=== PATIENT | female | born 1940 | race Caucasian/White ===

== ENCOUNTER 2020-04-22 17:16 | Emergency (ER) | payer MEDICARE, SELFPAY ==
--- NOTE | ~2020-04-22 | CT_ITS ---
EXAMINATION: CT cervical spine wo con DATE: 04/22/2020 19:32 INDICATION: Head injury. TECHNIQUE: Computed tomography (CT) of the cervical spine was performed without intravenous contrast. Automated exposure control and iterative reconstruction technique were employed. The dose-length pro duct was 119.20 mGy-cm. COMPARISON: None FINDINGS: There is a left mastoid effusion. There is 8 degrees dextrocurvature of cervical spine. The re is 3 mm anterolisthesis of C3 on C4 and 2 mm retrolisthesis of C4 on C5 and C5 on C6. Vertebral deana dy heights are normal. There is mildly decreased disc height at C2-C3, severely decreased disc height at C3-C4, C4-C5, and C5-C6, mildly decreased disc height at C6-C7, and severely decreased disc heigh t at C7-T1 and T1-T2. The following disc levels are specifically discussed: C2-C3: There is mild bilateral uncovertebral joint osteoarthritis. There is severe bilateral facet allyn int osteoarthritis. There is no neural foraminal stenosis. There is mild central canal stenosis. C3-C4: There is mild right and severe left uncovertebral joint osteoarthritis. There is severe bilate ral facet joint osteoarthritis. There is mild left neural foraminal stenosis. There is mild central c anal stenosis. C4-C5: There is severe bilateral uncovertebral joint osteoarthritis. There is moderate bilateral face t joint osteoarthritis. There is no neural foraminal stenosis. There is mild central canal stenosis. C5-C6: There is severe bilateral uncovertebral joint osteoarthritis. There is moderate bilateral face t joint osteoarthritis. There is mild left neural foraminal stenosis. There is mild central canal dominique nosis. C6-C7: There is no uncovertebral joint osteoarthritis. There is mild bilateral facet joint osteoarthr itis. There is no neural foraminal stenosis. There is no central canal stenosis. C7-T1: There is moderate bilateral uncovertebral joint osteoarthritis. There is mild bilateral facet joint osteoarthritis. There is no neural foraminal stenosis. There is no central canal stenosis. IMPRESSION: 1. No fracture. 2. Severe cervical spondylosis. Reviewed, dictated and finalized at location A.
--- NOTE | ~2020-04-22 | CT_ITS ---
EXAMINATION: CT brain wo con DATE: 04/22/2020 19:32 INDICATION: Head injury. TECHNIQUE: Computed tomography (CT) of the head was performed without intravenous contrast. The mA wa s adjusted according to patient size. Iterative reconstruction technique was employed. The dose-lengt h product was 605.33 mGy-cm. COMPARISON: None FINDINGS: There are prominent perivascular spaces in the bilateral basal ganglia. There is acute suba rachnoid hemorrhage in sulci of the frontal lobes. There are scattered areas of low attenuation in th e cerebral white matter, which is within normal limits for the patient's age. There is no acute ische aren infarct or abnormal mass lesion. The ventricles are normal in size. There is mild mucosal thicken ing in the ethmoid sinuses. There is a left mastoid effusion. There are likely changes of ocular lens replacement surgeries. IMPRESSION: 1. Acute subarachnoid hemorrhage in the sulci of the frontal lobes. I called this result to Dr. Katey beach. 2. Left mastoid effusion. Reviewed, dictated and finalized at location A. IMPRESSION: 1. Acute subarachnoid hemorrhage in the sulci of the frontal lobes. I called th is result to Dr. Hannah. 2. Left mastoid effusion.
[2020-04-22 17:15] VITALS: BP 140/70; PULSE 72; RESP 17; TEMP 36.7; O2SAT 100
--- NOTE | 2020-04-22 17:34 | ED.GENADULT ---
HPI - General Adult General Chief complaint: Fall Stated complaint: FALL/HI Time Seen by Provider: 04/22/20 17:16 Source: patient and EMS Mode of arrival: EMS Limitations: no limitations History of Present Illness HPI narrative: Patient is a 80-year-old female who presents per EMS for evaluation after tripping and falling patient describes mechanical fall secondary to her shoes patient on arrival to emergency department is in the room notes mild posterior headache coupled with moderate nausea patient denies other injuries or complaints presents per EMS with C-spine immobilization Related Data Allergies Allergy/AdvReac Type Severity Reaction Status Date / Time Sulfa (Sulfonamide Allergy Unknown Unknown Verified 04/22/20 17:22 Antibiotics) Review of Systems Review of Systems: All systems reviewed & are unremarkable except as noted in HPI and below PMFSH Past Medical History Medical History Arthritis Benign essential HTN Hip subtrochanteric fracture Hypothyroidism (acquired) Mixed hyperlipidemia Otitis Retained myringotomy tube in left ear Surgical History Surgical History H/O rotator cuff surgery History of open reduction and internal fixation (ORIF) procedure Hx of hysterectomy Family History Family History (Updated 11/11/16 @ 23:56 by DOCTOR UNKNOWN) Mother Family history of malignant neoplasm of stomach, Onset Age: 75 Patient's mother is Father Patient's father is Social History Social History Years smoked: 5 Smoking status: Former smoker Tobacco type: cigarettes Second hand tobacco smoke exposure: No Smoking end date: 08/07/78 Alcohol intake: current Substance use: never Substance use type: does not use Gender identity (if verbalized by the patient): Female Exam Narrative: Exam Narrative: GENERAL: Well-appearing, well-nourished, and in no acute distress. HEAD: Normocephalic, atraumatic. EYES: PERRLA and EOMI. ENT: Nares clear, no rhinorrhea or epistaxis. Mucous membranes moist. NECK: Supple. No adenopathy or masses. CHEST: Clear to auscultation. No respiratory distress. No wheezes rales or rhonchi HEART: Regular rate and rhythm. No murmur heard. Normal peripheral pulses. ABDOMEN: Soft, nontender, nondistended EXTREMITIES: Normal range of motion. No edema. No cervical thoracic or lumbar tenderness SKIN: Warm, dry, no rash. NEURO: No focal deficits. Alert and oriented x3. Cranial nerves II through XII grossly intact PSYCH: Normal mood and affect. Course Consultations Consultation #1: Discussed case with [facility] who has extreme limitations and requests that I try other facilities Date: 04/22/20 Time: 20:26 Consultation #2: Discussed case with [facility] emergency department Dr. Rios who has accepted the patient Date: 04/22/20 Time: 20:26 Vital Signs Vital signs: Vital Signs Temperature 98.1 F 04/22/20 17:15 Pulse Rate 72 04/22/20 17:15 Respiratory Rate 17 04/22/20 17:15 Blood Pressure 140/70 04/22/20 17:15 Pulse Oximetry 100 04/22/20 17:15 Temperature 98.1 F 04/22/20 17:15 Pulse Rate 73 04/22/20 20:36 Respiratory Rate 18 04/22/20 20:36 Blood Pressure 130/78 04/22/20 20:36 Pulse Oximetry 96 04/22/20 20:36 Medical Decision Making MDM Narrative Medical decision making narrative: Patient with subarachnoid hemorrhage hemodynamically stable GCS of 15 will be transferred to trauma center for further evaluation patient is agreement this plan. Vital Signs Vital Signs: Vital Signs Temperature 98.1 F 04/22/20 17:15 Pulse Rate 72 04/22/20 17:15 Respiratory Rate 17 04/22/20 17:15 Blood Pressure 140/70 04/22/20 17:15 Pulse Oximetry 100 04/22/20 17:15 Temperature 98.1 F 04/22/20 17:15 Pulse Rat
[2020-04-22] MEDS: FAMOTIDINE 20 MG/2 ML VIAL IV PUSH (18:11)
[2020-04-22] MEDS: ONDANSETRON INJ 4 MG/2 ML VIAL IV PUSH ×2 (18:11→20:48)
[2020-04-22 18:12] VITALS: BP 141/64; PULSE 71; RESP 15; O2SAT 97
[2020-04-22] MEDS: SODIUM CHLORIDE 0.9% IV 500 ML 999 ML IV CONT (18:12)
[2020-04-22 20:36] VITALS: BP 130/78; PULSE 73; RESP 18; O2SAT 96
--- NOTE | 2020-04-22 20:56 | PC.NURSE ---
report to ollie newton @ [facility]
== END 2020-04-22 21:03 | disposition short-term general hospital (02) ==
PROVIDERS: Emergency Provider Emergency Medicine; PCP Family Medicine
DX: S06.6X9A Traumatic subarachnoid hemorrhage with loss of consciousness of unspecified duration, initial encounter (principal); M19.90 Unspecified osteoarthritis, unspecified site; I10 Essential (primary) hypertension; E03.9 Hypothyroidism, unspecified; E78.5 Hyperlipidemia, unspecified; Z87.891 Personal history of nicotine dependence; W19.XXXA Unspecified fall, initial encounter
CPT/HCPCS: 70450; 72125; 96365; 96375; 96376; 99291; J0131; J2405; J7040

== ENCOUNTER 2020-05-01 13:29 | Outpatient (CLI) | payer MEDICARE, SELFPAY ==
--- NOTE | ~2020-05-01 | XR_ITS ---
EXAMINATION: XR abdomen/kub 1V EXAM DATE: 05/01/2020 13:49 INDICATION: Abdominal pain. Recent hospital stay for brain bleed. TECHNIQUE: Frontal projection(s) of the abdomen for interpretation. There is no prior study for katerina solomon. FINDINGS: There is moderate amount of colonic stool and gas. No small bowel dilation, nonobstructiv e bowel gas pattern. There are no suspicious calcifications identified. There is no organomegaly suspected. Severe lumbar spondylosis. Right hip replacement. Lung bases unremarkable. IMPRESSION: Moderate amount of colonic stool. Reviewed, dictated and finalized at location B.
== END 2020-05-01 13:30 | disposition home or self-care (01) ==
PROVIDERS: PCP Family Medicine; Visit Provider Family Medicine
DX: R10.9 Unspecified abdominal pain (principal)
CPT/HCPCS: 74018

== ENCOUNTER 2021-02-25 11:53 | Outpatient (CLI) | payer MEDICARE, SELFPAY ==
--- NOTE | ~2021-02-25 | XR_ITS ---
EXAMINATION: XR knee LT 3V DATE: 02/25/2021 12:18 INDICATION: Left knee pain TECHNIQUE: Three views of the left knee were obtained. COMPARISON: None. FINDINGS: There is depression of the medial tibial plateau and moderate joint space narrowing. Modera te joint space narrowing is also seen in the patellofemoral compartment. The bones are osteopenic. Th ere is a large knee joint effusion. Calcified atherosclerosis is noted. IMPRESSION: 1. Depression of the medial tibial plateau which could be acute or chronic although imaging appearanc e suggests the latter. Recommend correlation for history of trauma. Reviewed, dictated and finalized at location B. IMPRESSION: 1. Depression of the medial tibial plateau which could be acute or chronic alth ough imaging appearance suggests the latter. Recommend correlation for history of trauma.
== END 2021-02-25 11:54 | disposition home or self-care (01) ==
LOC: ANHIMG 11:59
PROVIDERS: PCP Family Medicine; Visit Provider Family Medicine
DX: M25.562 Pain in left knee (principal)
CPT/HCPCS: 73562

== ENCOUNTER 2021-03-05 12:31 | Outpatient (CLI) | payer MEDICARE, SELFPAY ==
[2021-03-05 13:19] LABS: Alanine Aminotransferase 20 U/L (4-35); Albumin Level 4.7 g/dL (3.5-5.1); Alkaline Phosphatase 93 U/L (38-126); Anion Gap 10 mmol/L (8-16); Aspartate Amino Transferase 25 U/L (14-36); Bilirubin,Total 0.4 mg/dL (0.2-1.3); Blood Urea Nitrogen 32 mg/dL (7-17); Calcium 9.9 mg/dL (8.4-10.2); Carbon Dioxide 29 mmol/L (22-30); Chloride 95 mmol/L (98-107); Estimated Glomerular Filt Rate > 60; Glucose 118 mg/dL (65-110); Potassium 4.6 mmol/L (3.4-5.0); Sodium 134 mmol/L (137-145)
[2021-03-08 16:20] LABS: Thyroid Stimulating Hormone Reflex 0.887 uIU/mL (0.465-4.68)
[2021-03-10 19:02] LABS: Vitamin D 1,25 (OH)2 Total 43 pg/mL (18-72); Vitamin D2 1,25 (OH)2 <8 pg/mL; Vitamin D3 1,25 (OH)2 43 pg/mL
== END 2021-03-05 12:32 | disposition home or self-care (01) ==
LOC: ANHLAB 12:34
PROVIDERS: Physician Assistant; PCP Family Medicine; Visit Provider Family Medicine
DX: E55.9 Vitamin D deficiency, unspecified (principal); I10 Essential (primary) hypertension
CPT/HCPCS: 36415; 80053; 82652; 84443

== ENCOUNTER 2021-03-15 14:39 | Outpatient (CLI) | payer MEDICARE, SELFPAY ==
[2021-03-15 15:32] LABS: Hematocrit 43.9 % (37.0-47.0); Hemoglobin 14.2 g/dL (12.0-15.0)
[2021-03-15 15:41] LABS: Albumin Level 4.8 g/dL (3.5-5.1); Estimated Glomerular Filt Rate > 60; Glucose 116 mg/dL (65-110)
--- NOTE | 2021-03-15 15:54 | ECG_ITS ---
Measurements Intervals Perry Rate: 66 P: 64 LA: 197 QRS: 9 QRSD: 104 T: 61 QT: 410 QTc: 430 Interpretive Statements SINUS RHYTHM POSSIBLE LEFT ATRIAL ENLARGEMENT LOW QRS VOLTAGE IN LIMB LEADS ANTEROSEPTAL INFARCT, AGE INDETERMINATE ABNORMAL ECG Electronically Signed On 03-15-2021 16:49:14 CDT by Yo Adam D.O.
[2021-03-15 16:57] LABS: Urine Cotinine NEGATIVE
[2021-03-15 17:20] LABS: Hemoglobin A1C 5.7 % (<5.7)
== END 2021-03-15 14:40 | disposition home or self-care (01) ==
LOC: ANHLAB 14:54
PROVIDERS: PCP Family Medicine; Visit Provider Orthopaedic Surgery
DX: Z01.818 Encounter for other preprocedural examination (principal); M17.12 Unilateral primary osteoarthritis, left knee; I10 Essential (primary) hypertension; E78.2 Mixed hyperlipidemia; E03.9 Hypothyroidism, unspecified; R94.31 Abnormal electrocardiogram [ECG] [EKG]
CPT/HCPCS: 80307; 82040; 82565; 82947; 83036; 85014; 85018; 93005

== ENCOUNTER 2021-03-30 15:06 | Outpatient (CLI) | payer MEDICARE, SELFPAY ==
--- NOTE | ~2021-03-30 | DEXA_ITS ---
Bone Density Report Name: Carlotta Lamar Age: 81 Sex: Female Ethnicity: White Date of : 1940 Indication: postmenopausal; parental hip fracture; height loss; prior fracture; hysterectomy; rheumatoid arthritis; Referring Provider: AZUCENA WHITMAN Study: Bone densitometry was performed. Exam Date: March 30, 2021 Accession number: [id number] Bone Density: Region BMD T-score Z-score Classification AP Spine (L2, L3, L4) 1.303 2.0 4.9 Normal Femoral Neck (Left) 0.551 -2.7 -0.3 Osteoporosis Total Hip (Left) 0.636 -2.5 -0.3 Osteoporosis World Health Organization criteria for BMD impression classify patients as: Normal (T-score at or above -1.0), Osteopenia (T-score between -1.0 and -2.5), or Osteoporosis (T-score at or below -2.5). 10-year Fracture Risk: FRAX not reported because: Some T-score for Spine Total or Hip Total or Femoral Neck at or below -2.5 Prior hip or vertebral fracture Treated for osteopor Clinical Information Provided by Patient: Have had a previous hip or vertebral fracture Has had a low trauma fracture Parent has had a hip fracture Has rheumatoid arthritis Is being treated for osteoporosis Has used the following medications: Vitamin D, Calcium Has the following medical conditions: Hysterectomy Patient maximum height was 61 Menopause Age: 50 No regular weight bearing exercise Does not regularly consume dairy products Onset of menses at age 12 Number of children 4 Impression: The patient has established osteoporosis, based on the Left Femoral Neck T-score and the existence of a prior fracture. The patient has risk factors, including: parental hip fracture, previous fracture. Discussion: It is important to ask patients whether they are taking their medications and to encourage continued and appropriate compliance with their osteoporosis therapies to reduce fracture risk. It is also important to review their risk factors and encourage appropriate calcium and vitamin D intakes, exercise, fall prevention and other lifestyle measures. Follow-Up: Consider a repeat BMD and Vertebral Fracture Assessment (VFA) exam in 2 years or sooner if medically necessary, to reassess this patient's status. Reported by: [facility] on 03/30/2021 3:50:00 PM. Reviewed, dictated and finalized at location ARangel APODACA
--- NOTE | ~2021-03-30 | MM_ITS ---
EXAMINATION: MM screening [facility] HISTORY: Screening mammogram TECHNIQUE: Craniocaudal and mediolateral oblique 3-D tomosynthesis images were obtained and synthetic 2-D images were generated. CAD analysis was submitted and interpreted. COMPARISON: 04/30/2019, 04/18/2018, 04/04/2017 BREAST PARENCHYMAL COMPOSITION: There are scattered areas of fibroglandular density. FINDINGS: There is no evidence of suspicious mass, calcification, or architectural distortion to sugg est malignancy in either breast. There has been no suspicious interval change. IMPRESSION: 1. No mammographic evidence of malignancy. 2. Recommend routine screening mammography in one year. BI-RADS Category 1: Negative Reviewed, dictated and finalized at location A.
== END 2021-03-30 15:07 | disposition home or self-care (01) ==
PROVIDERS: PCP Family Medicine; Visit Provider Family Medicine
DX: Z12.31 Encounter for screening mammogram for malignant neoplasm of breast (principal); Z78.0 Asymptomatic menopausal state; M81.0 Age-related osteoporosis without current pathological fracture
CPT/HCPCS: 77063; 77067; 77080

== ENCOUNTER 2021-06-28 09:02 | Outpatient (CLI) | payer MEDICARE, SELFPAY ==
[2021-06-28 10:33] LABS: Basophils Absolute Auto 0.1 K/mm3 (0.0-0.1); Basophils Percent Auto 1.2 % (0.2-1.2); Eosinophils Absolute Auto 0.1 K/mm3 (0-0.3); Eosinophils Percent Auto 1.2 % (0-4.4); Hematocrit 40.1 % (37.0-47.0); Hemoglobin 13.3 g/dL (12.0-15.0); Immature Granulocyte Absolute 0.02 K/mm3 (0.00-0.031); Immature Granulocyte Percent A 0.3 % (0-0.5); Lymphocytes Absolute Auto 2.35 K/mm3 (0.9-3.2); Lymphocytes Percent Auto 30.6 % (18.3-44.2); Mean Corpuscular HGB Conc 33.2 g/dl (32-36); Mean Corpuscular Hemoglobin 30.6 pg (26-34); Mean Corpuscular Volume 92.2 fl (80-100); Mean Platelet Volume 8.9 fl (7.4-10.4); Monocytes Absolute Auto 0.6 K/mm3 (0.1-0.6); Monocytes Percent Auto 7.2 % (2.6-8.5); Neutrophils Absolute Auto 4.6 K/mm3 (1.3-6.7); Neutrophils Percent Auto 59.5 % (45.5-73.1); Platelet Count Result 307 k/mm3 (150-375); Red Blood Count 4.35 M/mm3 (4.2-5.4); Red Cell Distribution Width 12.3 % (11.5-14.5); White Blood Count 7.7 K/mm3 (4.5-10.0)
[2021-06-28 10:43] LABS: Urine Cotinine NEGATIVE
[2021-06-28 10:49] LABS: Albumin Level 4.8 g/dL (3.5-5.1)
[2021-06-28 10:52] LABS: Anion Gap 7 mmol/L (8-16); Blood Urea Nitrogen 37 mg/dL (7-17); Calcium 9.8 mg/dL (8.4-10.2); Carbon Dioxide 31 mmol/L (22-30); Chloride 97 mmol/L (98-107); Estimated Glomerular Filt Rate 60; Glucose 104 mg/dL (65-110); Potassium 4.4 mmol/L (3.4-5.0); Sodium 135 mmol/L (137-145)
[2021-06-28 10:55] LABS: Hemoglobin A1C 5.3 % (<5.7)
== END 2021-06-28 09:03 | disposition home or self-care (01) ==
LOC: ANHSURGERY 09:08
PROVIDERS: Anesthesiology; PCP Family Medicine; Visit Provider Orthopaedic Surgery
DX: Z01.818 Encounter for other preprocedural examination (principal); M17.12 Unilateral primary osteoarthritis, left knee; I10 Essential (primary) hypertension
CPT/HCPCS: 36415; 80048; 80307; 82040; 83036; 85025; 87081

== ENCOUNTER → 2021-07-20 00:57 | Outpatient (CLI) | payer MEDICARE, SELFPAY ==
[2021-07-21 02:02] LABS: SARS-CoV-2 RNA PCR Negative
== END ==
PROVIDERS: PCP Family Medicine; Visit Provider Orthopaedic Surgery
DX: Z01.812 Encounter for preprocedural laboratory examination (principal); Z20.822 Contact with and (suspected) exposure to COVID-19
CPT/HCPCS: C9803; U0003; U0005

== ENCOUNTER 2021-07-24 18:40 | Observation (INO) | payer MEDICARE, SELFPAY ==
[2021-06-28 09:17] VITALS: BMI 19.9
--- NOTE | 2021-06-28 09:49 | PC.NURSE ---
Addendum entered by Heena Pro RN 06/28/21 09:56: TOTAL JOINT CLASS 07/07/21 AT 10AM Original Note: Report to the Outpatient Waiting Room, entrance under the green pavilion located off [facility], at time _1100 on date _07/23/21 . OR Time: _1:00 PM . - You and your visitor will be asked a series of questions to screen for COVID 19 for your protection. - A mask is required within the hospital. - Only one visitor is allowed at this time. Patient visitors will be guided where to wait when not with patient. Preoperative COVID Testing Requirements: No COVID Test needed if: (proof is required; if not received patient will have Rapid Test prior to entry) COVID TESTING 07/20/21 AT 0900 - Patient has received COVID Vaccine at least 14 days prior to procedure date or - Patient has positive COVID test result within last 90 days of surgery date. COVID Test needed if above criteria is not met If not COVID vaccinated a COVID test must be conducted within 72 hours of surgery and patient is asked to isolate self from time of testing until procedure. You will go to the [facility] for your COVID testing. The [facility] Testing site is located at the corner of [address] [facility]. You will only be called if COVID results are positive and your surgeon may reschedule your elective surgery date. Patients may have clear liquids (water, carbonated beverages, clear teas, apple juice) until 3 hours prior to surgery with a maximum of 20 ounces. - No food from midnight until time of surgery - Infants may have breast milk until 4 hours before surgery, infant formula 6 hours prior to surgery. - Children will be allowed to drink immediately following surgery. If applicable, please bring a bottle or sippy cup to assist with drinking. Juice, water, soda, and popsicles are readily available. For infants on formula, please bring formula the day of surgery. Pacifiers are allowed. Take the following medications with a SIP of water the morning of surgery: __LEVOTHYROXINE Medications to discontinue per physician __ALL VITAMINS AND SUPPLEMENTS 3 DAYS PRE OP Date to take last dose___07/19/21 Please no make-up, nail kinyarwanda, hairspray, perfume, deodorant, or body powder the day of surgery. No jewelry (including any body piercings) or valuables the day of surgery, leave them at home. Please take a shower or bath the night before, or the morning of, surgery with an antibacterial soap. Wear comfortable, loose fitting clothing. Children are encouraged to wear pajamas. - Jewelry must be removed prior to entering the operating room. Rings and piercings that are not removed may be cut off. - The hospital will not accept responsibility for valuables. - Please leave all valuables, including medications, at home the day of surgery. If you are going home after surgery, a licensed set key driver must drive you home. - NO public transportation without another adult. - We recommend that an adult stay with you for 24 hours following discharge. - We also recommend that you do not drive, make important decision, drink alcoholic beverages, or take any drugs that were not prescribed by your health care provider for at least 24 hours after your discharge time. For Pediatric surgeries, we recommend two adults accompany the child home (only one inside the building at this time). VERBAL Follow any additional instructions given to you from your eveline instructions given to _PATIENT and asked if any additional questions and then verbalized understanding. Patient advised to call surgeon office or pre surgery nurse liaison [phone] if any additional questions.
[2021-06-28 10:10] VITALS: BP 141/52; PULSE 79; RESP 16; TEMP 36.9; O2SAT 99
[2021-07-23] VITALS (11 sets, daily range): BP systolic 133–162; BP diastolic 57–82; PULSE 69–86; RESP 10–19; TEMP 36.2–37.1; O2SAT 96–100
--- NOTE | 2021-07-23 09:57 | WPDANESPNB ---
Anes - Peripheral Nerve Block Date/Time: 07/23/21 09:57 I have discussed with the patient/family/POA the placement of a peripheral nerve block for post-operative pain management, including associated risks, benefits, complications, and side effects. Alternative methods of post-operative analgesia were detailed. Questions were solicited and answers provided to the satisfaction of the patient/family/POA. Time-Out: A pre-procedural Time-Out was completed immediately before starting the procedure and confirmed: Patient Identification, Site, Procedure, Patient Position and the Availability of Requisite Equipment. Clinical Indications: Acute post-operative pain management requested by the operative surgeon. Nerve Block Insertion Note Anes-nerve block: adductor canal left Patient position: supine Skin prep: chlorhexidine Needle: 22 gauge, stimulating, insulated echogenic needle. Needle length: 80 mm Technique: ultrasound Injectate: bupivacaine 0.5% with epi 5 mcg/ml (30cc - no epi) Observations: tolerated well Complications: none Procedure start time:: 1258 Procedure end time:: 1302
--- NOTE | 2021-07-23 09:57 | WPDANESEPPF ---
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 Patient Data Age: 81 Gender: F Height: 1.5 m Weight: 44.8 kg Last Vital Signs Temp 36.9 C 06/28/21 10:10 Pulse 79 06/28/21 10:10 Resp 16 06/28/21 10:10 BP 141/52 H 06/28/21 10:10 Pulse Ox 99 06/28/21 10:10 Allergies Allergy/AdvReac Type Severity Reaction Status Date / Time Sulfa (Sulfonamide Allergy Unknown Hives Verified 07/23/21 12:11 Antibiotics) fentanyl AdvReac Unknown Nausea Verified 07/23/21 12:11 Home Medications Medication Instructions Recorded Confirmed Type levothyroxine 100 mcg tablet 100 mcg PO DAILY #90 tablet 03/08/21 07/23/21 Rx acetaminophen 325 mg tablet 325 mg PO Q6H PRN 03/15/21 07/23/21 History fluticasone propionate 50 1 spray NASAL BID #15.8 ml 04/19/21 07/23/21 Rx mcg/actuation nasal spray,suspension celecoxib 100 mg capsule See Rx Instructions .ROUTE 05/29/21 07/23/21 Rx .COMPLEX #180 cap acetaminophen-codeine 0.5 tablet PO Q6H PRN 06/28/21 07/23/21 History bimatoprost [Lumigan] 1 drp EACH EYE QPM 06/28/21 07/23/21 History cyanocobalamin (vitamin B-12) 1,000 mcg PO BID 06/28/21 07/23/21 History lisinopril 10 See Rx Instructions .ROUTE 07/07/21 07/23/21 Rx mg-hydrochlorothiazide 12.5 mg .COMPLEX #90 tablet tablet Patient hx anesthesia problems: none Family hx anesthesia problems: none Results Review: All pre-operative results and documents have been reviewed as part of the pre-operative evaluation. [facility] Past Medical History Medical History Abnormality of gait and mobility Acute pain Allergic reaction caused by a drug Arthritis Benign essential HTN Encounter for general adult medical examination with abnormal findings Hip subtrochanteric fracture Hypothyroidism (acquired) Knee swelling Mixed hyperlipidemia Osteopenia determined by x-ray Osteoporosis Otitis Pain Pollen allergies Retained myringotomy tube in left ear SAH (subarachnoid hemorrhage) Surgical History Surgical History H/O rotator cuff surgery History of open reduction and internal fixation (ORIF) procedure Hx of hysterectomy Family History Family History Mother Family history of malignant neoplasm of stomach, Onset Age: 75 Patient's mother is Father Patient's father is Social History Social History Social History: Smoking packs per day: 0.5 Smoking cigarettes per day: 10.0 Years smoked: 8 Smoking pack-years: 4.00 Tobacco type: cigarettes Second hand tobacco smoke exposure: No Smoking end date: 08/07/72 Additional smoking assessment comments: DENIES ANY FORM OF TOBACCO USE Alcohol intake: current Alcohol use details: occasionally Substance use: never Substance use type: does not use Living arrangements: alone Gender identity (if verbalized by the patient): Female Sexual Orientation (if Verbalized by the Patient): Straight or Heterosexual Spiritual care concerns: No Anes - Eval Final PreProcedure Day of Procedure 07/23/21 09:57 Patient weight: thin Heart: regular rate and rhythm Lungs: clear to auscultation and normal air movement Airway: Mallampati scale class II Neurological: alert and oriented Last oral intake: >/= 8 hours ASA classification: III Emergent: no Anesthetic plan: proceed Anesthesia type and monitoring: general LMA and standard monitoring Results Review: All pre-operative results and documents have been reviewed as part of the pre-operative evaluation. Informed Consent: The kelly
[2021-07-23] MEDS: LACTATED RINGERS 1,000 ML 30 ML IV CONT ×2 (11:53→16:48)
[2021-07-23] MEDS: ACETAMINOPHEN 500 MG TABLET 1000 MG PO (12:06)
[2021-07-23] MEDS: TRANEXAMIC ACID 1,000MG/ISO100 1,000 MG/100 ML BAG 200 MG IVPB (12:09)
--- NOTE | 2021-07-23 12:33 | WPDHPUPDATE1 ---
History and Physical Update Update Date/Time: 07/23/21 12:33 History and Physical has been reviewed, including an updated exam of the patient. There are NO changes in the patient's condition. Risks, benefits, and alternatives have been discussed and questions answered. Patient agrees to proceed with procedure.
[2021-07-23] MEDS: ceFAZolin 2 GM/D5W 50 ML 2 GM/50 ML BAG IVPB ×2 (13:19→20:16)
[2021-07-23] MEDS: ceFAZolin SODIUM 1 GM VIAL IV PUSH (16:16)
[2021-07-23] MEDS: VANCOMYCIN HCL 1,000 MG VIAL 1000 MG TOPICAL (16:16)
--- NOTE | 2021-07-23 16:49 | W.PM.PROC2 ---
Procedure Note - Detailed Date of Procedure 07/23/21 Pre-op Diagnosis Prim OA Lt Knee Post-op Diagnosis same Procedure Performed Left total knee arthroplasty. Surgeon Octavio Tanner MD Computational Theory Scientist lCaudia Morelos PA-C Anesthesia general Indications Severe arthritis with severe medial tibial bone loss and varus deformity with contracture. Findings Severe medial tibial erosion requiring 5 mm metallic augment. Some of the bone appeared necrotic. Extensive varus contracture required wide extensive medial release the exposure of the proximal tibia including the posterior medial tibia. Medial needle release was also performed. The lateral collateral ligament remained moderately attenuated. A total stabilized tibial insert was utilized. Balance, patellar tracking, and motion were excellent at the conclusion of the procedure. Description of Procedure The patient was given a nerve block preoperatively, and then brought to the operating room. A general anesthetic was administered. The leg was prepped and draped in the usual sterile fashion. The limb was elevated and the tourniquet inflated to 300 mmHg during the initial exposure and final tibial prep and cementation. A longitudinal incision was created along the medial border of the patella and patellar tendon, and a trivector approach to the knee was performed. A very large medial release was taken. The knee was then flexed. The osteophytes were carefully removed. The intramedullary guide was placed in the femoral canal. The degenerative changes were extensive. The bone was very sclerotic. The distal femoral resection was then taken with the oscillating saw. Initially at 8 mm and then an additional 2 mm due to contracture. The collateral ligaments were carefully protected. The tibia was carefully exposed. The anterior cruciate ligament and meniscal remnants were removed. The posterior cruciate ligament was sacrificed The intramedullary guide was placed down the tibia canal. The jig was applied, and the proximal tibia was resected according to the preoperative plan. There was a step cut created initially for the 10 mm augment, but the 5 mm augment was then cut later slightly deeper. The medial collateral ligament required extensive release including a needle release. Extension balancing was not possible due to the significant chronic deformity and ligament changes. Multiple assessments with the gap associate attorney and trialing was performed. . The patella was measured. Patellar resection was carried out with the oscillating saw. The femur was sized and rotation assessed using a combination of gap balancing, posterior referencing, and the AP axis. The 4 in 1 cutting block, and the box cut guide were used to finish the femoral cuts after equal gaps were assured. Due to the posterior medial tightness, the femur was externally rotated to 4?. The osteophytes were carefully removed from the back of the knee. The knee was copiously irrigated periodically throughout the procedure. Further releases were performed as needed. The tibia was sized and broached. Central drilling for the short stem was performed. The bony surfaces were prepared for cementing with pulsatile lavage. The real tibial was cemented, and the femoral, and patellar components were pressfit into position. Excess cement was carefully removed. Patellar tracking was carefully assessed. No additional releases were required. 1 g vancomycin powder was placed in the joint and some on the subcutaneous tissues. The wound was closed with #1 Vicryl suture, #2 Quill suture, 0-Quill suture, and 2-0 Quill suture followed by Steri-Strips. A sterile bulky dressing was applied. Meticulous hemostasis was maintained throughout the procedure. There were no complications. The patient was extubated and brought to the recovery room in stable condition after the application of sterile dressing with Alex bandage. Physician clinical trials assistant, Claudia Morelos PA-C,
--- NOTE | 2021-07-23 17:19 | SUR.PHASEI ---
1719 Simple mask removed
--- NOTE | 2021-07-23 18:10 | ADMGEN ---
This patient, Carlotta Lamar, was admitted to Medical Room 257-01. Patient/family oriented to hospital policies and general routines including ID bracelet, bed and alarms, visiting hours, pain management, procedures, bathroom and other care routines, personal items, smoking policy, room service/diet, and visiting hours. Information on how to activate the Rapid Response Team has been discussed. Patient/Family are encouraged to report perceived risks to care and to ask questions if they do not understand what they are told or what they should do.
[2021-07-23] MEDS: SODIUM CHLORIDE 0.9% IV 1,000 ML 125 ML IV CONT (18:28)
[2021-07-23] MEDS: ASPIRIN 81 MG ENTERIC TABLET PO (18:35)
[2021-07-23] MEDS: SENNA/DOCUSATE SODIUM TABLET 2 TAB PO (18:35)
[2021-07-23] MEDS: FAMOTIDINE 20 MG TABLET PO (20:16)
[2021-07-23] MEDS: ONDANSETRON INJ 4 MG/2 ML VIAL IV PUSH (20:16)
[2021-07-23] MEDS: oxyCODONE HCL (*CRX) 5 MG TAB IR PO (20:16)
--- NOTE | ~2021-07-24 | XR_ITS ---
EXAMINATION: XR knee LT 2V DATE: 07/23/2021 17:01 INDICATION: Left knee arthroplasty. Postop. TECHNIQUE: 2 views of left knee were obtained. COMPARISON: Left knee radiographs 02/25/2021 FINDINGS: There is a total left knee arthroplasty with patellar resurfacing in near-anatomic alignmen t. No fracture. There is gas in the knee joint and soft tissues, consistent with recent surgery. IMPRESSION: 1. Total left knee arthroplasty in near-anatomic alignment. Reviewed, dictated and finalized at location A. ICE UPHOLSTERER
[2021-07-24 00:24] VITALS: BP 114/50; PULSE 66; RESP 16; TEMP 36.6; O2SAT 97
[2021-07-24] MEDS: ONDANSETRON INJ 4 MG/2 ML VIAL IV PUSH ×2 (01:16→08:53)
[2021-07-24] MEDS: ceFAZolin 2 GM/D5W 50 ML 2 GM/50 ML BAG IVPB ×2 (04:04→13:14)
[2021-07-24 04:24] VITALS: BP 120/46; PULSE 64; RESP 16; TEMP 36.4; O2SAT 97
[2021-07-24] MEDS: LEVOTHYROXINE SODIUM 100 MCG TABLET PO (06:01)
[2021-07-24] MEDS: polyethylene glycoL 3350 17 GM POWD.PACK PO (08:47)
[2021-07-24] MEDS: lisinopriL 10 MG TABLET PO (08:47)
[2021-07-24] MEDS: hydroCHLOROthiazide 12.5 MG CAPSULE PO (08:47)
[2021-07-24] MEDS: SENNA/DOCUSATE SODIUM TABLET 2 TAB PO ×2 (08:48→17:19)
[2021-07-24] MEDS: CELECOXIB 100 MG CAPSULE PO ×2 (08:48→17:19)
[2021-07-24] MEDS: FAMOTIDINE 20 MG TABLET PO ×2 (08:48→20:50)
[2021-07-24] MEDS: ASPIRIN 81 MG ENTERIC TABLET PO ×2 (08:48→17:20)
[2021-07-24 10:00] VITALS: BP 100/54; PULSE 78; RESP 16; TEMP 37; O2SAT 97
[2021-07-24 14:00] VITALS: BP 129/53; PULSE 86; RESP 16; TEMP 37.2; O2SAT 97
[2021-07-24] MEDS: CYCLOBENZAPRINE HCL 10 MG TABLET PO (18:41)
--- NOTE | 2021-07-24 19:29 | PM.PNORT ---
Progress Note: A&P Assessment and Plan (1) Arthritis of left knee: Code(s): M17.12 - Unilateral primary osteoarthritis, left knee Status: Acute (2) Acquired varus deformity knee: Qualifiers: Laterality: left Qualified Code(s): M21.162 - Varus deformity, not elsewhere classified, left knee Code(s): M21.169 - Varus deformity, not elsewhere classified, unspecified knee Status: Acute (3) Congenital varus deformity of left knee: Code(s): Q74.1 - Congenital malformation of knee Status: Acute (4) Status post total knee replacement, left: Code(s): Z96.652 - Presence of left artificial knee joint Status: Acute Assessment and Plan: Post op day one. Complex knee arthroplasty with deformity correction and extensive soft tissue releases. Tibial bone lose with prosthetic augmentation. Total stabilized construct. Nausea with pain medication. Will change to a lesser dose. Will benefit from close observation; edema and pain management. She lives alone, but I expect a safe discharge to home after inpatient care for a few days. Subjective Subjective Date/Time Seen: 07/24/21 19:30 Interval history: Post op day 1. Status post complex total knee arthroplasty. Pain well controlled. Nausea with standard dosing. Exam Narrative: Moderate swelling. No drainage. Quad function diminished. Neuro intact. Objective Data Vital Signs Vital Signs: Vital Signs - 24 hr 07/23/21 20:24 07/24/21 00:24 07/24/21 04:24 Temperature 36.8 C 36.6 C 36.4 C Pulse Rate 77 66 64 Respiratory Rate 16 16 16 Blood Pressure 150/58 H 114/50 L 120/46 L Pulse Oximetry 99 97 97 07/24/21 10:00 07/24/21 14:00 Temperature 37.0 C 37.2 C Pulse Rate 78 86 Respiratory Rate 16 16 Blood Pressure 100/54 L 129/53 L Pulse Oximetry 97 97 Intake/Output Intake/Output: Intake & Output 07/21/21 07/22/21 07/23/21 07/24/21 23:59 23:59 23:59 23:59 Intake Total 570 1979 Balance 570 1979 Meds/Results Medications: Active Medications Generic Name Dose Route Start Last Admin Trade Name Freq PRN Reason Stop Dose Admin Aspirin 81 mg 07/23/21 17:49 07/24/21 17:20 Aspirin 81 Mg Enteric Tablet PO 81 mg BID NOHEMY Administration Celecoxib 100 mg 07/24/21 09:00 07/24/21 17:19 Celecoxib 100 Mg Capsule PO 100 mg BID NOHEMY Administration Cyclobenzaprine HCl 10 mg 07/23/21 17:49 07/24/21 18:41 Cyclobenzaprine Hcl 10 Mg Tablet PO 10 mg Q8H PRN Administration Spasms Diphenhydramine HCl 25 mg 07/23/21 17:49 Diphenhydramine Hcl Inj 50 Mg/Ml Vial IV PUSH Q6H PRN Itching Famotidine 20 mg 07/23/21 21:00 07/24/21 08:48 Famotidine 20 Mg Tablet PO 20 mg Q12HR NOHEMY Administration Hydrochlorothiazide 12.5 mg 07/24/21 09:00 07/24/21 08:47 Hydrochlorothiazide 12.5 Mg Capsule PO 12.5 mg DAILY NOHEMY Administration Levothyroxine Sodium 100 mcg 07/24/21 06:30 07/24/21 06:01 Levothyroxine Sodium 100 Mcg Tablet PO 100 mcg DAILY@0630 NOHEMY Administration Lisinopril 10 mg 07/24/21 09:00 07/24/21 08:47 Lisinopril 10 Mg Tablet PO 10 mg DAILY NOHEMY Administration Naloxone HCl 0.1 mg 07/23/21 17:49 Naloxone Hcl 0.4 Mg/Ml Vial IV PUSH Q2M PRN Opiate Reversal Ondansetron HCl 4 mg 07/23/21 17:49 07/24/21 08:53 Ondansetron Inj 4 Mg/2 Ml Vial IV PUSH 4 mg Q4H PRN Administration Nausea And Vomiting Oxycodone HCl 5 mg 07/23/21 17:49 07/23/21 20:16 Oxycodone Hcl (*Crx) 5 Mg Tab Ir PO 5 mg Q4H PRN Administration Pain Rated 4-6 Oxycodone HCl 10 mg 07/23/21 17:49 Oxycodone Hcl (*Crx) 5 Mg Tab Ir PO Q4H PRN Pain Rated 7-10 Oxycodone HCl 2.5 mg 07/24/21 19:27 Oxycodone Hcl (*Crx) 2.5 Mg Tab Ir PO Q4H PRN Pain Rated 4-6 Polyethylene Glycol 17 gm 07/24/21 09:00 07/24/21 08:47 Polyethylene Glycol 3350 17 Gm Powd.Pack PO 17 gm QAM NOHEMY Administration Senna/D
[2021-07-24] MEDS: oxyCODONE HCL (*CRX) 2.5 MG TAB IR PO (20:53)
[2021-07-24 22:12] VITALS: BP 148/45; PULSE 57; RESP 14; TEMP 36.7; O2SAT 98
[2021-07-24 22:15] VITALS: BP 123/73; PULSE 72; RESP 14; TEMP 36.8; O2SAT 100
[2021-07-25] MEDS: oxyCODONE HCL (*CRX) 2.5 MG TAB IR PO (01:04)
[2021-07-25 04:00] VITALS: PULSE 91; RESP 14; TEMP 36.7; O2SAT 96
[2021-07-25] MEDS: ONDANSETRON INJ 4 MG/2 ML VIAL IV PUSH (05:29)
[2021-07-25] MEDS: LEVOTHYROXINE SODIUM 100 MCG TABLET PO (05:30)
[2021-07-25] MEDS: CYCLOBENZAPRINE HCL 10 MG TABLET PO (05:30)
[2021-07-25] MEDS: polyethylene glycoL 3350 17 GM POWD.PACK PO (08:36)
[2021-07-25] MEDS: diphenhydrAMINE HCl INJ 50 MG/ML VIAL 25 MG IV PUSH ×3 (08:36→22:23)
[2021-07-25] MEDS: ASPIRIN 81 MG ENTERIC TABLET PO ×2 (08:37→17:08)
[2021-07-25] MEDS: FAMOTIDINE 20 MG TABLET PO ×2 (08:37→20:08)
[2021-07-25] MEDS: hydroCHLOROthiazide 12.5 MG CAPSULE PO (08:37)
[2021-07-25] MEDS: lisinopriL 10 MG TABLET PO (08:37)
[2021-07-25] MEDS: SENNA/DOCUSATE SODIUM TABLET 2 TAB PO ×2 (08:37→17:07)
[2021-07-25] MEDS: ACETAMINOPHEN 500 MG TABLET 1000 MG PO ×3 (11:17→20:08)
--- NOTE | 2021-07-25 13:38 | PM.PNORT ---
Progress Note: A&P Assessment and Plan (1) Arthritis of left knee: Code(s): M17.12 - Unilateral primary osteoarthritis, left knee Status: Acute (2) Acquired varus deformity knee: Qualifiers: Laterality: left Qualified Code(s): M21.162 - Varus deformity, not elsewhere classified, left knee Code(s): M21.169 - Varus deformity, not elsewhere classified, unspecified knee Status: Acute (3) Congenital varus deformity of left knee: Code(s): Q74.1 - Congenital malformation of knee Status: Acute (4) Status post total knee replacement, left: Code(s): Z96.652 - Presence of left artificial knee joint Status: Acute Assessment and Plan: Post op day two. Complex knee arthroplasty with deformity correction and extensive soft tissue releases. Tibial bone lose with prosthetic augmentation. Total stabilized construct. Pain not controlled with lower dose pain medication, however no N/V. Patient wants to continue current medications. Will benefit from close observation; edema and pain management. She lives alone, but I expect a safe discharge to home after inpatient care for a few days. She is having more trouble today and is less motivated. Discussed with patient that this is expected. Pain and swelling peak around this time. Plan for d/c home tomorrow pending pain control. Subjective Subjective Date/Time Seen: 07/25/21 13:38 Interval history: Post op day 1. Status post complex total knee arthroplasty. Pain well controlled. Nausea with standard dosing. Post op day 2. Pain not controlled today. Complains of itching relieved by Benadryl. Spoke with nurse who stated she is less motivated today and is afraid of going home. Patient is on board with going home tomorrow pending pain control. Discussed that this is the time at which the pain begins to peak. I recommend continuing ice and elevation. No n/v today. No other complaints. Review of Systems Review of Systems: All systems reviewed & are unremarkable except as noted in HPI and below Exam Narrative: 81-year-old normal weight female. Resting comfortably in bed. Alert and oriented x3. No acute distress. Wearing compression socks bilaterally. Dressing intact with no drainage. Moderate swelling. No ecchymosis. No erythema. No hematoma. No warmth. Range of motion limited due to pain. Quad function diminished. Calf nontender. Neurologic status intact. No varicosities. Distal pulses palpable. Light touch sensation intact. Good capillary refill. Objective Data Vital Signs Vital Signs: Vital Signs - 24 hr 07/24/21 14:00 07/24/21 22:12 07/24/21 22:15 Temperature 99.0 F 98.1 F 98.2 F Pulse Rate 86 57 L 72 Respiratory Rate 16 14 14 Blood Pressure 129/53 L 148/45 H 123/73 Pulse Oximetry 97 98 100 07/25/21 04:00 Temperature 98.1 F Pulse Rate 91 Respiratory Rate 14 Blood Pressure Pulse Oximetry 96 Intake/Output Intake/Output: Intake & Output 07/22/21 07/23/21 07/24/21 07/25/21 23:59 23:59 23:59 23:59 Intake Total 570 2180 770 Output Total 500 Balance 570 1680 770 Meds/Results Medications: Active Medications Generic Name Dose Route Start Last Admin Trade Name Freq PRN Reason Stop Dose Admin Acetaminophen 1,000 mg 07/25/21 09:00 07/25/21 11:17 Acetaminophen 500 Mg Tablet PO 1,000 mg Q6H NOHEMY Administration Aspirin 81 mg 07/23/21 17:49 07/25/21 08:37 Aspirin 81 Mg Enteric Tablet PO 81 mg BID NOHEMY Administration Celecoxib 200 mg 07/25/21 17:00 Celecoxib 200 Mg Capsule PO BID NOHEMY Cyclobenzaprine HCl 10 mg 07/23/21 17:49 07/25/21 05:30 Cyclobenzaprine Hcl 10 Mg Tablet PO 10 mg Q8H PRN Administration Spasms Diphenhydramine HCl 25 mg 07/23/21 17:49 07/25/21 08:36 Diphenhydramine Hcl Inj 50 Mg/Ml Vial IV PUSH 25 mg Q6H PRN Administration Itching Famotidine 20 mg 07/23/21 21:00 07/25/21 08:37 Famotidine 20 Mg Tablet PO 20 mg
[2021-07-25 14:30] VITALS: BP 109/58; PULSE 95; RESP 18; TEMP 36.8; O2SAT 97
[2021-07-25] MEDS: CELECOXIB 200 MG CAPSULE PO (17:08)
[2021-07-25 22:22] VITALS: BP 96/39; PULSE 82; RESP 18; TEMP 36.4; O2SAT 97
[2021-07-26] VITALS: BP 104/64; PULSE 82; RESP 18; TEMP 36.4; O2SAT 97
[2021-07-26] MEDS: ACETAMINOPHEN 500 MG TABLET 1000 MG PO ×3 (02:39→14:10)
[2021-07-26 05:50] VITALS: BP 120/64; PULSE 63; RESP 16; TEMP 36.6; O2SAT 99
[2021-07-26] MEDS: LEVOTHYROXINE SODIUM 100 MCG TABLET PO (06:32)
[2021-07-26] MEDS: ASPIRIN 81 MG ENTERIC TABLET PO (08:40)
[2021-07-26] MEDS: lisinopriL 10 MG TABLET PO (08:40)
[2021-07-26] MEDS: hydroCHLOROthiazide 12.5 MG CAPSULE PO (08:40)
[2021-07-26] MEDS: CELECOXIB 200 MG CAPSULE PO (08:40)
[2021-07-26] MEDS: FAMOTIDINE 20 MG TABLET PO (08:40)
--- NOTE | 2021-07-26 09:44 | PCOTNOTE ---
On 07/26/21, the student, Angela LAWRENCE, provided care and completed [facility] documentation on this patient. I have reviewed the student's documentation and agree with the findings.
--- NOTE | 2021-07-26 12:19 | PM.DS ---
DS: Admitting Diagnosis Discharge Date 07/26/21 Admitting Diagnosis OA knee Left DS: Discharge Diagnosis Discharge Diagnosis (1) Orthopedic aftercare for joint replacement: Code(s): Z47.1 - Aftercare following joint replacement surgery Status: Acute (2) Status post total knee replacement, left: Code(s): Z96.652 - Presence of left artificial knee joint Status: Acute Assessment and Plan: Postop day 3: Left total knee arthroplasty. Complex knee arthroplasty with deformity correction and extensive soft tissue releases. Tibial bone lose with prosthetic augmentation. Total stabilized construct. Patient progressed well with PT. She did have some pain control issues and nausea/vomiting with opioid medication. Pain tolerable today with Tylenol. No numbness or tingling. She will be d/c home. She has family that will help her. We had a lengthy discussion regarding postoperative wound care, limitations, expectations, and exercises. Patient shows good understanding. DVT prophylaxis: 81 mg baby aspirin b.i.d. for 14 days. Short frequent walks. Compression socks. Pain medication: Tramadol, Tylenol, Celecoxib. She understand to not take more than 4,000mg in a 24 hour period. Patient has followup appointment with Dr. Tanner in 3 weeks. DS: Summary Hospital Course Reason for hospitalization: Total knee arthroplasty Hospital Course: Patient tolerated procedure well. Has had initial PT/OT. Status at Discharge Functional status at discharge: uses cane/walker Overall status at discharge: patient is progressing back to baseline Time Spent with Patient Time attestation: Total time spent providing and/or coordinating discharge services: Exam Narrative: Elderly 81-year-old thin female. Resting comfortably in bed. Alert and oriented x3. No acute distress. Wearing compression socks bilaterally. Dressing dry and intact with no drainage. Moderate swelling. No ecchymosis. No erythema. No hematoma. Range of motion limited due to pain. Decreased quad function. Calf nontender. Neurologic status intact. No varicosities. Distal pulses palpable. Discharge Plan Discharge Attending physician on discharge: Octavio Tanner Discharging Clinician: Claudia Morelso Patient Disposition: Home, Self-Care Activity: december shower Diet: regular Wound Care Instructions: follow printed instructions Discharge Instructions: See instruction sheet Patient Instructions: Antibiotic Form, Pain Management (DC) Stand Alone Forms: General Discharge Information Follow-up/Referrals: Claudia Morelos PA [Physician [facility]acker] - Discharge Medications: New tramadol 50 mg Tablet 50 mg PO Q6H PRN (Reason: Breakthrough Pain) Qty: 30 RF: 0 aspirin 81 mg Tablet,Delayed Release (Dr/Ec) 81 mg PO BID 14 Days Qty: 28 RF: 0 Continued acetaminophen 325 mg tablet 325 mg PO Q6H PRN (Reason: Pain) RF: 0 acetaminophen-codeine 300-30 mg tablet 0.5 tablet PO Q6H PRN (Reason: pain) RF: 0 cyanocobalamin (vitamin B-12) 1,000 mcg Tablet 1,000 mcg PO BID RF: 0 Lumigan 0.01 % Drops 1 drp EACH EYE QPM RF: 0 levothyroxine [Synthroid] 100 mcg tablet 100 mcg PO DAILY Qty: 90 RF: 3 fluticasone propionate 50 mcg/actuation spray,suspension 1 spray NASAL BID Qty: 15.8 RF: 4 celecoxib 100 mg capsule See Rx Instructions .ROUTE .COMPLEX Qty: 180 RF: 0 lisinopril-hydrochlorothiazide 10-12.5 mg tablet See Rx Instructions .ROUTE .COMPLEX Qty: 90 RF: 1 Date of admission: 07/24/21 18:40 Primary Care Provider: Ketty Garcia Admitting Provider: Octavio Tanner Attending physician on admission: Octavio Tanner Condition: Stable
== END 2021-07-26 14:45 | disposition home or self-care (01) ==
LOC: ANHSURGERY 18:45 → ANH2MED 18:45
PROVIDERS: Admitting Provider Orthopaedic Surgery; PCP Family Medicine; Visit Provider Orthopaedic Surgery
PROC: (CPT 27447; principal; 2021-07-23 13:00)
DX: M17.12 Unilateral primary osteoarthritis, left knee (principal); M21.162 Varus deformity, not elsewhere classified, left knee; G89.18 Other acute postprocedural pain; I10 Essential (primary) hypertension; E03.9 Hypothyroidism, unspecified; E78.5 Hyperlipidemia, unspecified; Z87.891 Personal history of nicotine dependence
CPT/HCPCS: 27447; 64447; 36415; 73560; 86850; 86900; 86901; 97110; 97116; 97161; 97165; 97530; 97535; A9270; C1713; C1776; G0378; J0131; J0171; J0690; J1100; J1200; J1885; J2270; J2405; J2704; J2795; J3370; J7030; J7120

== ENCOUNTER 2022-04-19 14:05 | Outpatient (CLI) | payer MEDICARE, SELFPAY ==
[2022-04-19 14:26] LABS: Basophils Absolute Auto 0.1 K/mm3 (0.0-0.1); Basophils Percent Auto 1.6 % (0.2-1.2); Eosinophils Absolute Auto 0.1 K/mm3 (0-0.3); Eosinophils Percent Auto 1.9 % (0-4.4); Hematocrit 40.8 % (37.0-47.0); Hemoglobin 13.3 g/dL (12.0-15.0); Immature Granulocyte Absolute 0.02 K/mm3 (0.00-0.031); Immature Granulocyte Percent A 0.3 % (0-0.5); Lymphocytes Absolute Auto 2.27 K/mm3 (0.9-3.2); Lymphocytes Percent Auto 32.7 % (18.3-44.2); Mean Corpuscular HGB Conc 32.6 g/dl (32-36); Mean Corpuscular Hemoglobin 29.6 pg (26-34); Mean Corpuscular Volume 90.7 fl (80-100); Mean Platelet Volume 9.1 fl (7.4-10.4); Monocytes Absolute Auto 0.6 K/mm3 (0.1-0.6); Monocytes Percent Auto 9.2 % (2.6-8.5); Neutrophils Absolute Auto 3.8 K/mm3 (1.3-6.7); Neutrophils Percent Auto 54.3 % (45.5-73.1); Platelet Count Result 299 k/mm3 (150-375); Red Cell Distribution Width 12.5 % (11.5-14.5); White Blood Count 6.9 K/mm3 (4.5-10.0)
[2022-04-19 16:33] LABS: Alanine Aminotransferase 23 U/L (6-35); Alkaline Phosphatase 64 U/L (38-126); Anion Gap 14 mmol/L (8-16); Aspartate Amino Transferase 30 U/L (14-36); Bilirubin,Total 0.5 mg/dL (0.2-1.3); Blood Urea Nitrogen 30 mg/dL (7-17); Carbon Dioxide 23 mmol/L (22-30); Chloride 95 mmol/L (98-107); Estimated Glomerular Filt Rate > 60; Glucose 107 mg/dL (65-110); Potassium 4.3 mmol/L (3.4-5.0); Sodium 132 mmol/L (137-145)
[2022-04-19 16:47] LABS: Free T4 Free Thyroxine 2.03 ng/mL (0.78-2.19); Vitamin D 25 Hydroxy 77.9 ng/mL
[2022-04-19 17:04] LABS: Thyroid Stimulating Hormone 0.393 uIU/mL (0.465-4.680); Total Triiodothyronine (T3) 0.82 NG/ML (0.97-1.69)
== END 2022-04-19 14:06 | disposition home or self-care (01) ==
LOC: ANHLAB 14:09
PROVIDERS: PCP Family Medicine; Visit Provider Family Medicine
DX: E03.9 Hypothyroidism, unspecified (principal); E55.9 Vitamin D deficiency, unspecified; I10 Essential (primary) hypertension
CPT/HCPCS: 36415; 80053; 82306; 84439; 84443; 84480; 85025

== ENCOUNTER 2022-05-19 09:31 | Outpatient (CLI) | payer MEDICARE, SELFPAY ==
--- NOTE | ~2022-05-19 | MM_ITS ---
EXAMINATION: MM screening claudine BI w irineo HISTORY: Screening TECHNIQUE: Craniocaudal and mediolateral oblique 3-D tomosynthesis images were obtained and synthetic 2-D images were generated. CAD analysis was submitted and interpreted. COMPARISON: Comparison to multiple prior studies sequentially, with oldest reviewed study dated 04/18. BREAST PARENCHYMAL COMPOSITION: Breast composed of scattered areas of fibroglandular density FINDINGS: There are subareolar/periareolar left breast nodules located anteriorly, slightly inferior to the nipple. No mammographic evidence for malignancy in the right breast. IMPRESSION: 1. Left breast nodules in the periareolar location. 2. Additional mammographic views and possible breast ultrasound are recommended. BI-RADS Category 0: Incomplete: Needs additional imaging evaluation. Reviewed, dictated and finalized at location A. IMPRESSION: 1. Left breast nodules in the periareolar location. 2. Additional mammographic views and possible breast ultrasound are recommended . BI-RADS Category 0: Incomplete: Needs additional imaging evaluation.
== END 2022-05-19 09:32 | disposition home or self-care (01) ==
LOC: ANHIMG 09:34
PROVIDERS: PCP Family Medicine; Visit Provider Family Medicine
DX: Z12.31 Encounter for screening mammogram for malignant neoplasm of breast (principal); R92.8 Other abnormal and inconclusive findings on diagnostic imaging of breast
CPT/HCPCS: 77063; 77067

== ENCOUNTER 2022-05-27 11:57 | Outpatient (CLI) | payer MEDICARE, SELFPAY ==
--- NOTE | ~2022-05-27 | MMUS_ITS ---
EXAMINATION: MM diagnostic claudine LT w irineo, US breast LT limited HISTORY: Follow-up left breast asymmetries TECHNIQUE: Additional 3-D tomosynthesis images of the left breast were performed and synthetic 2-D im ages were generated. CAD analysis was submitted and interpreted. High resolution Limited left breast ultrasound was performed. COMPARISON: Comparison to multiple prior studies sequentially, with oldest reviewed study dated 02/17. BREAST PARENCHYMAL COMPOSITION: Breast composed of scattered areas of fibroglandular density FINDINGS: MAMMOGRAPHIC FINDINGS: Left periareolar asymmetries are less apparent with spot compression and mediolateral views. No discr ete mass or architectural distortion. ULTRASOUND: Limited left breast ultrasound: There are mildly prominent subareolar ducts. No discrete solid or cys tic mass is identified. IMPRESSION: 1. No evidence for malignancy in the left breast. 2. Routine yearly screening mammogram and regular clinical breast examination are recommended. BI-RADS Category 2: Benign finding(s). Reviewed, dictated and finalized at location A. IMPRESSION: 1. No evidence for malignancy in the left breast. 2. Routine yearly screening mammogram and regular clinical breast examination a re recommended. BI-RADS Category 2: Benign finding(s).
== END 2022-05-27 11:58 | disposition home or self-care (01) ==
LOC: ANHIMG 11:58
PROVIDERS: PCP Family Medicine; Visit Provider Physician Assistant
DX: R92.8 Other abnormal and inconclusive findings on diagnostic imaging of breast (principal)
CPT/HCPCS: 76642; 77061; 77065; G0279

== ENCOUNTER 2023-07-20 06:58 | Inpatient (IN) | payer MEDICARE, SELFPAY ==
[2023-07-20] VITALS (8 sets, daily range): BP systolic 108–146; BP diastolic 57–99; PULSE 78–103; RESP 12–26; TEMP 36.6–36.8; O2SAT 96–100
--- NOTE | ~2023-07-20 | XR_ITS ---
XR abdomen/kub 1V 07/23/2023 06:28 Indication: Small bowel obstruction Procedure: KUB Comparison: 07/22 and 07/21/2023 Findings: NG tube in the stomach. There is been significant decompression of the small bowel, consist ent with resolving obstruction. There is gas through the colon into the rectum. Lung bases unremarkab le. There is a right hip arthroplasty. Impression: 1: Improving small bowel distention, consistent with resolving obstruction. Reviewed, dictated and finalized at location A. RAFT ENGINEER Impression: 1: Improving small bowel distention, consistent with resolving obstruction.
--- NOTE | ~2023-07-20 | XR_ITS ---
EXAMINATION: XR abdomen gastric tube insert DATE: 07/21/2023 18:33 INDICATION: Nasogastric tube placement TECHNIQUE: A supine view of the abdomen and lower chest was obtained for evaluation of feeding tube placement. COMPARISON: 07/20/2023 FINDINGS: Nasogastric tube tip projecting over the right abdomen in the region of the pylorus, unclear whether within the stomach or proximal duodenum with proximal side-port in the distal gastric body. Persisten t dilated gas-filled loops of bowel consistent with small bowel obstruction. Mild left basilar atelec tasis. Heart size is normal. IMPRESSION: 1. Nasogastric tube extending to stomach with distal tip near the pylorus, unclear whether within the stomach or duodenum. Consider withdrawal by [address] the tip in the distal gastric body. 2. Small bowel obstruction. Reviewed, dictated and finalized at location A. OOVER IMPRESSION: 1. Nasogastric tube extending to stomach with distal tip near the pylorus, uncl ear whether within the stomach or duodenum. Consider withdrawal by [address] e the tip in the distal gastric body. 2. Small bowel obstruction.
--- NOTE | ~2023-07-20 | CT_ITS ---
CT of the Abdomen and Pelvis: Indication: Abdominal pain Technique: 2.5 mm axial scans were obtained through the abdomen and pelvis following intravenous adm inistration of 100 cc of Omnipaque 350. Dose reduction technique was used on this scan by utilizing a utomated exposure control and iterative reconstruction technique. The dose-length product (DLP) was 2 67.23 mGy-cm. Findings: Scans through the lung bases are unremarkable. The liver, spleen, pancreas, gallbladder, adrenals and kidneys are within normal limits. There are at herosclerotic calcifications of the aorta. No lymphadenopathy. There are multiple dilated loops of small bowel. There is transition point in the central mid abdomen (axial image 105, coronal image 45). Distal small bowel loops and large bowel are decompressed. Images through the pelvis are degraded by streak artifact from right hip arthroplasty. Urinary bladde r grossly unremarkable. No definite pelvic mass seen. No ascites. Impression: Small bowel obstruction, with transition point, as detailed above. Reviewed, dictated and finalized at location . RVISOR INDUSTRIAL ARTS EDUCATION Impression: Small bowel obstruction, with transition point, as detailed above.
--- NOTE | ~2023-07-20 | XR_ITS ---
XR abdomen/kub 1V 07/22/2023 06:28 Indication: Small bowel obstruction Procedure: KUB Comparison: 07/21/2023 Findings: Dilated small bowel, consistent with obstruction. NG tube in the stomach. There is a right hip arthroplasty. Severe lumbar spondylosis. Impression: 1: Stable small bowel obstruction. Reviewed, dictated and finalized at location A. NG MACHINE OPERATOR Impression: 1: Stable small bowel obstruction.
--- NOTE | ~2023-07-20 | XR_ITS ---
EXAMINATION: XR abdomen gastric tube insert DATE: 07/20/2023 10:54 INDICATION: Nasogastric tube placement. TECHNIQUE: An upright view of the abdomen was obtained. COMPARISON: CT abdomen and pelvis 07/20/2023 FINDINGS: There are multiple dilated loops of small bowel. The lower abdomen is excluded. The nasogas tric tube tip is in the stomach. IMPRESSION: 1. Nasogastric tube tip in the stomach. 2. Small bowel obstruction. Reviewed, dictated and finalized at location A. HEEL BUILDER
--- NOTE | ~2023-07-20 | XR_ITS ---
SMALL BOWEL SERIES ONLY INDICATION: Follow-up small bowel obstruction TECHNIQUE: Serial plain films and fluoroscopic spot films are performed following NG tube administrat ion of water-soluble contrast. COMPARISON: KUB dated 07/23/2023 FINDINGS: Contrast was followed sequentially through the small bowel. The mucosal pattern is unremar kable. No evidence for stricture, polyp, diverticula or obstruction of flow of contrast. No signific ant small bowel dilation or obstruction. Transit time is normal. IMPRESSION: 1: Normal small bowel series. Reviewed, dictated and finalized at location A. ER SULFATE
--- NOTE | ~2023-07-20 | XR_ITS ---
EXAMINATION: XR abdomen gastric tube rechec, XR abdomen gastric tube rechec DATE: 07/21/2023 at 19:20 and at 19:47 following tube repositioning INDICATION: Nasogastric tube repositioning TECHNIQUE: 1. A supine view of the abdomen and lower chest was obtained for evaluation of feeding tube placement . 2. A second supine view of the abdomen and lower chest was obtained following repositioning of the na sogastric tube for evaluation of feeding tube placement. COMPARISON: 07/21/2023 at 6:30 PM FINDINGS: Nasogastric tube extends into the stomach with distal tip collimated below the inferior margin of the [id number] on the initial image. On the subsequent image the distal tip is visualized projecting over the expected location of the distal gastric body with proximal side-port in the more proximal deana dy of the stomach. Again seen are mildly dilated loops of small bowel in the visualized abdomen consi stent with persistent small bowel obstruction. Mild left basilar atelectasis. Heart size is normal. S evere thoracic and lumbar spondylosis. IMPRESSION: 1. Nasogastric tube expected position with tip and proximal side port in the body of the stomach. 2. Small bowel obstruction. Reviewed, dictated and finalized at location A. DE SALES COORDINATOR IMPRESSION: 1. Nasogastric tube expected position with tip and proximal side port in the deana dy of the stomach. 2. Small bowel obstruction.
--- NOTE | ~2023-07-20 | XR_ITS ---
Supine and upright views of the abdomen Clinical history: Small bowel obstruction COMPARISON: 05/01/2020 Findings: NG tube in place. Multiple dilated small bowel loops are present. No free air identified. N o abnormal mass lesion or calcification is seen. Right hip arthroplasty present. Impression: Small bowel obstruction, with NG tube in place. Reviewed, dictated and finalized at [facility]. OR ANALYST DEVELOPER Impression: Small bowel obstruction, with NG tube in place.
[2023-07-20 07:55] LABS: Basophils Percent Auto 0.2 % (0.2-1.2); Hematocrit 42.5 % (37.0-47.0); Hemoglobin 14.4 g/dL (12.0-15.0); Immature Granulocyte Absolute 0.09 K/mm3 (0.00-0.031); Immature Granulocyte Percent A 0.7 % (0-0.5); Lymphocytes Absolute Auto 1.38 K/mm3 (0.9-3.2); Lymphocytes Percent Auto 10.8 % (18.3-44.2); Mean Corpuscular HGB Conc 33.9 g/dl (32-36); Mean Corpuscular Hemoglobin 30.6 pg (26-34); Mean Corpuscular Volume 90.4 fl (80-100); Mean Platelet Volume 9.1 fl (7.4-10.4); Monocytes Absolute Auto 0.7 K/mm3 (0.1-0.6); Monocytes Percent Auto 5.7 % (2.6-8.5); Neutrophils Absolute Auto 10.6 K/mm3 (1.3-6.7); Neutrophils Percent Auto 82.6 % (45.5-73.1); Platelet Count Result 377 k/mm3 (150-375); Red Cell Distribution Width 11.9 % (11.5-14.5); White Blood Count 12.8 K/mm3 (4.5-10.0)
--- NOTE | 2023-07-20 08:03 | ED.GENADULT ---
HPI - General Adult General Chief complaint: Nausea/Vomiting/Diarrhea Stated complaint: vomiting Time Seen by Provider: 07/20/23 07:24 History of Present Illness HPI narrative: 83-year-old female present to the emergency department for evaluation of nausea and abdominal pain. Patient reports that the symptoms started on Monday patient attributed to possibly eating some bad chicken. Patient states she was having abdominal pain and on Monday with associated nausea and vomiting. Patient denies having any bowel movements since Monday. Patient denies any prior abdominal surgical other than tubal ligation. Related Data Home Medications Medication Instructions Recorded Confirmed bimatoprost 0.01 % eye drops 1 drp EACH EYE QPM 06/28/21 07/20/23 (Lumigan) cyanocobalamin (vitamin B-12) 1,000 mcg PO BID 06/28/21 07/20/23 1,000 mcg tablet clobetasol 0.05 % topical cream 1 applic topical DAILY PRN spot on 07/20/23 07/20/23 ankle Allergies Allergy/AdvReac Type Severity Reaction Status Date / Time Sulfa (Sulfonamide Allergy Unknown Hives Verified 07/20/23 07:27 Antibiotics) fentanyl AdvReac Unknown Nausea Verified 07/20/23 07:27 Review of Systems Review of Systems: All systems reviewed & are unremarkable except as noted in HPI and below PMFSH Past Medical History Medical History Abnormality of gait and mobility Acute pain Allergic reaction caused by a drug Ankle weakness Arthritis Benign essential HTN Chronic right shoulder pain Closed fracture of neck Displaced midcervical fracture of right femur, initial encounter for closed fracture (05/02/16) Encounter for general adult medical examination with abnormal findings Essential (primary) hypertension Herpes zoster without complication Hip subtrochanteric fracture History of falling (05/02/16) Hypothyroidism (acquired) Hypothyroidism, unspecified Knee swelling Mixed hyperlipidemia Mixed hyperlipidemia Nummular eczema Osteopenia determined by x-ray Osteopenia of multiple sites Osteoporosis Other chronic pain Otitis Pain PND (post-nasal drip) Pollen allergies Primary osteoarthritis of right shoulder Retained myringotomy tube in left ear Rotator cuff arthropathy of right shoulder SAH (subarachnoid hemorrhage) Strep pharyngitis Tendinopathy of both shoulders Unspecified disorder of synovium and tendon, left shoulder Vitamin D deficiency, unspecified Weakness of right hip Surgical History Surgical History H/O rotator cuff surgery History of hip surgery (~04/25/16) Bipolar Cristian Arthroplasty Rt Hip History of open reduction and internal fixation (ORIF) procedure Hx of hysterectomy Presence of right artificial hip joint Family History Family History Mother Family history of malignant neoplasm of stomach, Onset Age: 75 Patient's mother is Father Patient's father is Social History Social History Social History: Smoking packs per day: 0.5 Smoking cigarettes per day: 10.0 Years smoked: 8 Smoking pack-years: 4.00 Smoking status: Never smoker Tobacco type: cigarettes Second hand tobacco smoke exposure: No Smoking end date: 08/07/72 Alcohol intake: current Alcohol use details: occasionally Substance use: never Substance use type: does not use Lack of Transportation: No Lack of Food: Never True Current Housing: I Have Housing Concerned About Future Housing: No Difficulty Paying Gas/Electric Bills: No Difficulty Paying for Meds: No Currently Unemployed: No Education: High School Diploma/GED Difficulty w/ Childcare or Family Care: No Living arrangements: alone Occupation/Education: retired Gender identity (if verbalized by the patient): Female
[2023-07-20] MEDS: ONDANSETRON INJ 4 MG/2 ML VIAL IV PUSH ×3 (08:13→19:24)
[2023-07-20 08:35] LABS: Anion Gap 13 mmol/L (8-16); Blood Urea Nitrogen 58 mg/dL (7-17); Carbon Dioxide 29 mmol/L (22-30); Chloride 89 mmol/L (98-107); Potassium 3.5 mmol/L (3.4-5.0); Sodium 131 mmol/L (137-145)
[2023-07-20 08:36] LABS: Alanine Aminotransferase 20 U/L (6-35); Albumin Level 4.8 g/dL (3.5-5.1); Alkaline Phosphatase 68 U/L (38-126); Aspartate Amino Transferase 31 U/L (14-36); Bilirubin,Total 1.3 mg/dL (0.2-1.3); Calcium 9.3 mg/dL (8.4-10.2); Estimated Glomerular Filt Rate 60; Glucose 133 mg/dL (65-110); Lipase 49 U/L (23-300)
[2023-07-20 10:28] LABS: Appearance Urine Clear (Clear); Bacteria Urine None Seen /hpf; Bilirubin Urine Negative (Negative); Blood Urine Negative (Negative); Color Urine Yellow (Yellow); Glucose Urine UA Negative (Negative); Ketones Urine 1+ mg/dL (Negative); Leukocyte Esterase Ur Negative LEU/UL (Negative); Nitrate Urine Negative (Negative); Non Pathogenic Casts 0-2; Protein Urine Trace mg/dL (Negative); RBC Urine 0-2 /hpf (0-2); Squamous Epithelial Cell Urine None seen /hpf (Few); WBC Urine 0-5 /hpf; pH Urine 5.5 (5.0-9.0)
[2023-07-20 10:30] LABS: Add Urine Microscopic? YES; Specific Grav Ur 1.065 (1.001-1.035)
--- NOTE | 2023-07-20 11:23 | ADMGEN ---
This patient, Carlotta Lamar, was admitted to Medical Room 261-01. Patient/family oriented to hospital policies and general routines including ID bracelet, bed and alarms, visiting hours, pain management, procedures, bathroom and other care routines, personal items, smoking policy, room service/diet, and visiting hours. Information on how to activate the Rapid Response Team has been discussed. Patient/Family are encouraged to report perceived risks to care and to ask questions if they do not understand what they are told or what they should do.
[2023-07-20] MEDS: SODIUM CHLORIDE 0.9% IV 1,000 ML 125 ML IV CONT ×2 (11:30→19:24)
--- NOTE | 2023-07-20 18:19 | PM.IMHP ---
H&P: HPI History of Present Illness Date/Time: 07/20/23 18:19 Chief Complaint: Abdominal pain and vomiting Narrative: Patient is an 83-year-old woman who Monday after eating some chicken developed vomiting and severe abdominal pain. This was mostly Monday night. She thought she had some food poisoning. She did not have any bowel movements and has not had some even before Monday. The pain became a little better and the vomiting less frequent but then yesterday the pain recurred with more vomiting and she came to the emergency room. She was noted there to have a distended abdomen and CT scan showed a mid small-bowel obstruction in the central abdomen. She has never had anything like this before. Her only previous surgery was a tubal ligation done 50 years ago. She had a nasogastric tube placed in the emergency room which at was extremely bothersome for her but she is getting used to it. She is admitted now for small-bowel obstruction. She has really not had anything to eat since Monday. Review of Systems Review of Systems: All systems reviewed & are unremarkable except as noted in HPI and below (HPI and those items noted below) Constitutional: Constitutional: Denies chills and Denies fever(s) Cardiovascular: Cardiovascular: Denies chest pain, Denies diaphoresis, Denies dyspnea and Denies paroxysmal nocturnal dyspnea Respiratory: Respiratory: Denies chest congestion, Denies cough and Denies dyspnea Integumentary/Breasts: Skin/Breast: Denies lesions and Denies rash PMFSH Past Medical History Medical History Abnormality of gait and mobility Acute pain Allergic reaction caused by a drug Ankle weakness Arthritis Benign essential HTN Chronic right shoulder pain Closed fracture of neck Displaced midcervical fracture of right femur, initial encounter for closed fracture (05/02/16) Encounter for general adult medical examination with abnormal findings Essential (primary) hypertension Herpes zoster without complication Hip subtrochanteric fracture History of falling (05/02/16) Hypothyroidism (acquired) Hypothyroidism, unspecified Knee swelling Mixed hyperlipidemia Mixed hyperlipidemia Nummular eczema Osteopenia determined by x-ray Osteopenia of multiple sites Osteoporosis Other chronic pain Otitis Pain PND (post-nasal drip) Pollen allergies Primary osteoarthritis of right shoulder Retained myringotomy tube in left ear Rotator cuff arthropathy of right shoulder SAH (subarachnoid hemorrhage) Strep pharyngitis Tendinopathy of both shoulders Unspecified disorder of synovium and tendon, left shoulder Vitamin D deficiency, unspecified Weakness of right hip Surgical History Surgical History H/O rotator cuff surgery History of hip surgery (~04/25/16) Bipolar Cristian Arthroplasty Rt Hip History of open reduction and internal fixation (ORIF) procedure Hx of hysterectomy Presence of right artificial hip joint Family History Family History Mother Family history of malignant neoplasm of stomach, Onset Age: 75 Patient's mother is Father Patient's father is Social History Social History Social History: Smoking packs per day: 0.5 Smoking cigarettes per day: 10.0 Years smoked: 8 Smoking pack-years: 4.00 Smoking status: Never smoker Tobacco type: cigarettes Second hand tobacco smoke exposure: No Smoking end date: 08/07/72 Alcohol intake: current Alcohol use details: occasionally Substance use: never Substance use type: does not use Lack of Transportation: No Lack of Food: Never True Current Housing: I Have Housing Concerned About Future Housing: No Difficulty Paying Gas/Electric Bills: No Difficulty Paying for Meds: No Currentl
--- NOTE | 2023-07-20 22:01 | PHAR ---
LUMIGAN (Bimatoprost) 0.01% OPHTH SOLN 7.5ML. Instill 1 drop in both eyes at bedtime. Verified and sent back to [address] [place] [address].
[2023-07-21 04:34] VITALS: BP 117/45; PULSE 77; RESP 18; TEMP 36.4; O2SAT 95
[2023-07-21] MEDS: SODIUM CHLORIDE 0.9% IV 1,000 ML 125 ML IV CONT (04:35)
[2023-07-21] MEDS: ONDANSETRON INJ 4 MG/2 ML VIAL IV PUSH (04:44)
[2023-07-21 07:59] LABS: Hematocrit 37.9 % (37.0-47.0); Hemoglobin 12.2 g/dL (12.0-15.0); Mean Corpuscular HGB Conc 32.2 g/dl (32-36); Mean Corpuscular Hemoglobin 29.9 pg (26-34); Mean Corpuscular Volume 92.9 fl (80-100); Mean Platelet Volume 8.8 fl (7.4-10.4); Platelet Count Result 297 k/mm3 (150-375); Red Blood Count 4.08 M/mm3 (4.2-5.4); Red Cell Distribution Width 12.1 % (11.5-14.5); White Blood Count 11.4 K/mm3 (4.5-10.0)
[2023-07-21 08:11] LABS: Anion Gap 7 mmol/L (8-16); Blood Urea Nitrogen 47 mg/dL (7-17); Calcium 7.7 mg/dL (8.4-10.2); Carbon Dioxide 28 mmol/L (22-30); Chloride 97 mmol/L (98-107); Estimated Glomerular Filt Rate > 60; Glucose 94 mg/dL (65-110); Potassium 3.1 mmol/L (3.4-5.0); Sodium 132 mmol/L (137-145)
[2023-07-21] MEDS: ENOXAPARIN 30 MG/0.3 ML SYRINGE SUB-Q (08:15)
[2023-07-21 14:00] VITALS: BP 118/52; PULSE 74; RESP 18; TEMP 36.4; O2SAT 96
[2023-07-21] MEDS: SODIUM CHLORIDE 0.9% IV 1,000 ML 80 ML IV CONT (15:56)
[2023-07-21 20:06] VITALS: BP 129/49; PULSE 74; RESP 18; TEMP 36.6; O2SAT 96
--- NOTE | 2023-07-21 20:41 | PC.NURSE ---
Addendum entered by Jaimie Sal RN 07/22/23 04:31: Edit for previous note: When coming onto shift NG was found at 60 cm. At ~2124 Dr. Pinzon called to give new orders for suction and irrigation found under NG/Nasogastric Tube order. Original Note: Dr. Pinzon called to ask if NG tube was placed @ ~2034. 18 Fr NG was placed by dayshift but placement was too far back, per two KUB readings. When I came onto shift NG was at 50 cm and radiology was on the floor to take a third KUB image. While on the floor, radiology asked if I could pull NG back some more because it still looked far from expected position. I pulled NG back about 2 cm and a second image taken. I got called from radiology approx. 10 min. later and, per Dr. Cade, I was told to pull NG another 2 cm back and put another order for KUB. 4th KUB image was taken and showed NG tube in expected position with proximal side port in the body of the stomach. Dr. Pinzon said to restart suction on a medium constant rate.
--- NOTE | 2023-07-21 22:41 | PM.PNGS ---
Progress Note: A&P Assessment and Plan (1) SBO (small bowel obstruction): Code(s): K56.609 - Unspecified intestinal obstruction, unspecified as to partial versus complete obstruction Status: Acute Assessment and Plan: Not having much NG output with very small diameter NG tube placed in the emergency room. After speaking with the patient, she agrees to having a larger diameter, 18 Divehi, NG tube placed. Hopefully this will extract the air and very thickened fluid associated with SBO more effectively. At present it does not appear her bowel obstruction is resolving. Continue NG suction, serial abdominal exam, labs and daily abdominal films as well. (2) Incisional hernia of anterior abdominal wall without obstruction or gangrene: Code(s): K43.2 - Incisional hernia without obstruction or gangrene Status: Chronic Assessment and Plan: Asymptomatic. If needs surgery, will repair with incision. Otherwise can consider elective repair after bowel obstruction resolves. Subjective Subjective Date/Time Seen: 07/21/23 22:41 Patient reports: still having pain (Actually having more abdominal pain today), no flatus, no bowel movement and afebrile Review of Systems Review of Systems: All systems reviewed & are unremarkable except as noted in HPI and below (HPI and those items noted below) Constitutional: Constitutional: Denies headache(s) Gastrointestinal: Gastrointestinal: Reports as per HPI and Reports abdominal pain Neurologic: Denies confusion and Denies headache(s) Psychiatric: Psychiatric: Denies confusion Exam Const: General: comfortable and no acute distress Orientation/consciousness: patient oriented x3 GI: Inspection: distended and visible herniation GI Palp: Yes Soft to palpation, Yes Tenderness to palpation present (GI) (Minimal tenderness without peritoneal signs), No Guarding due to palpation present (GI), Yes Hernia present (Reducible supraumbilical incisional hernia), No Palpable mass present and No Rebound tenderness present Auscultation: normal bowel sounds (Some quality of tinkling) Neuro: General: patient oriented x3 and no focal motor deficits Extrem: General: no calf tenderness and no edema Psych: Affect: normal affect Insight: Good insight present (Psych) Judgement: Good judgement present (Psych) Objective Data Vital Signs Vital Signs: Vital Signs - 24 hr 07/21/23 04:34 07/21/23 08:00 07/21/23 14:00 Temperature 36.4 C 36.4 C Pulse Rate 77 74 Respiratory Rate 18 18 Blood Pressure 117/45 L 118/52 L Pulse Oximetry 95 96 Oxygen Delivery Room Air 07/21/23 20:06 Temperature 36.6 C Pulse Rate 74 Respiratory Rate 18 Blood Pressure 129/49 L Pulse Oximetry 96 Oxygen Delivery Intake/Output Intake/Output: Intake & Output 07/18/23 07/19/23 07/20/23 07/21/23 23:59 23:59 23:59 23:59 Intake Total 1000 2000 Output Total 180 Balance 1000 1820 Meds/Results Medications: Active Medications Generic Name Dose Route Start Last Admin Trade Name Freq PRN Reason Stop Dose Admin Clobetasol Propionate 1 applic 07/21/23 06:58 Clobetasol Propionate 0.05% Cream 15 Gm TOPICAL DAILY PRN spot on ankle Enoxaparin Sodium 30 mg 07/21/23 09:00 07/21/23 08:15 Enoxaparin 30 Mg/0.3 Ml Syringe SUB-Q 30 mg DAILY NOHEMY Administration Hydromorphone HCl 0.5 mg 07/20/23 21:12 Hydromorphone Hcl Inj (*Crx) 1 Mg/Ml Syr IV PUSH Q2H PRN Pain Rated 7-10 Sodium Chloride 1,000 mls @ 80 mls/hr 07/20/23 09:35 07/21/23 15:56 Normal Saline Iv IV CONT 80 mls/hr .[id number] NOHEMY Administration Ibuprofen 800 mg in 200 mls @ 400 mls/hr 07/20/23 21:15 Caldolor 800 Mg/200 Ml IVPB Q6H PRN Pain Rated 4-6 Levothyroxine Sodium 88 mcg 07/21/23 07:15 07/21/23 08:12 Levothyroxine Sodium 88 Mcg Tablet PO Not Given DAILY@0630 [facility] Lum[place] (Bimatoprost 1 each 07/20/23 22:00 07/21/23 20:57 ) 0.01% Melvina Javier
[2023-07-22 03:46] VITALS: BP 121/48; PULSE 72; RESP 18; TEMP 36.4; O2SAT 95
[2023-07-22] MEDS: SODIUM CHLORIDE 0.9% IV 1,000 ML 80 ML IV CONT (04:48)
[2023-07-22 05:15] LABS: Hematocrit 36.9 % (37.0-47.0); Hemoglobin 11.8 g/dL (12.0-15.0); Mean Corpuscular Hemoglobin 30.2 pg (26-34); Mean Corpuscular Volume 94.4 fl (80-100); Mean Platelet Volume 9.2 fl (7.4-10.4); Platelet Count Result 289 k/mm3 (150-375); Red Blood Count 3.91 M/mm3 (4.2-5.4); White Blood Count 9.1 K/mm3 (4.5-10.0)
[2023-07-22 05:25] LABS: Anion Gap 9 mmol/L (8-16); Blood Urea Nitrogen 44 mg/dL (7-17); Calcium 7.7 mg/dL (8.4-10.2); Carbon Dioxide 26 mmol/L (22-30); Chloride 101 mmol/L (98-107); Estimated Glomerular Filt Rate > 60; Glucose 82 mg/dL (65-110); Potassium 3.1 mmol/L (3.4-5.0); Sodium 136 mmol/L (137-145)
[2023-07-22] MEDS: ENOXAPARIN 30 MG/0.3 ML SYRINGE SUB-Q (08:10)
--- NOTE | 2023-07-22 15:06 | PM.PNGS ---
Progress Note: A&P Assessment and Plan (1) SBO (small bowel obstruction): Code(s): K56.609 - Unspecified intestinal obstruction, unspecified as to partial versus complete obstruction Status: Acute Assessment and Plan: Improving. Yesterday was the 1st full 24 hours she has had a larger diameter NG tube in place and in good position. She had a loose bowel movement or 2 yesterday. She has great bowel sounds at present. Her abdominal pain is gone. She still has dilated small intestine consistent with persistent SBO on plain films and is distended. Continue present treatment but if continues to improve like she has in the last 24 hours, will get water-soluble small bowel series tomorrow. (2) Incisional hernia of anterior abdominal wall without obstruction or gangrene: Code(s): K43.2 - Incisional hernia without obstruction or gangrene Status: Chronic Assessment and Plan: Asymptomatic (3) Anemia: Code(s): D64.9 - Anemia, unspecified Status: Acute Assessment and Plan: Most likely dilutional but does have some blood tinge to the NG output. Will start her on IV Protonix q.12 hours. Subjective Subjective Date/Time Seen: 07/22/23 15:06 Patient reports: feels better, pain is less (Abdominal pain gone), bowel movement (Some loose bowel movements yesterday none today) and afebrile Review of Systems Review of Systems: All systems reviewed & are unremarkable except as noted in HPI and below (HPI) Exam Const: General: comfortable and no acute distress Nutritional Appearance: thin Orientation/consciousness: patient oriented x3 GI: Inspection: distended, visible herniation (No change) and other (NG output blood tinged) GI Palp: Yes Soft to palpation, No Tenderness to palpation present (GI), No Guarding due to palpation present (GI), Yes Hernia present (Reducible as before) and No Rebound tenderness present Auscultation: normoactive bowel sounds Neuro: General: patient oriented x3 and no focal motor deficits Extrem: General: no calf tenderness and no edema Psych: Affect: normal affect Insight: Good insight present (Psych) Judgement: Good judgement present (Psych) Objective Data Vital Signs Vital Signs: Vital Signs - 24 hr 07/21/23 20:06 07/21/23 20:50 07/22/23 03:46 Temperature 36.6 C 36.4 C L Pulse Rate 74 72 Respiratory Rate 18 18 Blood Pressure 129/49 L 121/48 L Pulse Oximetry 96 95 Oxygen Delivery Room Air 07/22/23 08:45 Temperature Pulse Rate Respiratory Rate Blood Pressure Pulse Oximetry Oxygen Delivery Room Air Intake/Output Intake/Output: Intake & Output 07/19/23 07/20/23 07/21/23 07/22/23 23:59 23:59 23:59 23:59 Intake Total 1000 2000 1000 Output Total 180 230 Balance 1000 1820 770 Meds/Results Medications: Active Medications Generic Name Dose Route Start Last Admin Trade Name Freq PRN Reason Stop Dose Admin Clobetasol Propionate 1 applic 07/21/23 06:58 Clobetasol Propionate 0.05% Cream 15 Gm TOPICAL DAILY PRN spot on ankle Enoxaparin Sodium 40 mg 07/23/23 09:00 Enoxaparin 40 Mg/0.4 Ml Syringe SUB-Q DAILY NOHEMY Hydromorphone HCl 0.5 mg 07/20/23 21:12 Hydromorphone Hcl Inj (*Crx) 1 Mg/Ml Syr IV PUSH Q2H PRN Pain Rated 7-10 Ibuprofen 800 mg in 200 mls @ 400 mls/hr 07/20/23 21:15 Caldolor 800 Mg/200 Ml IVPB Q6H PRN Pain Rated 4-6 Potassium Chloride/Sodium Chloride 1,000 mls @ 125 mls/hr 07/22/23 15:05 Kcl 20 Meq/Ns IV CONT .Q8H NOHEMY Sodium Chloride 1,000 mls @ 999 mls/hr 07/22/23 15:03 Normal Saline Iv IV CONT 07/22/23 16:03 .Q1H1M ONE Levothyroxine Sodium 88 mcg 07/21/23 07:15 07/22/23 05:38 Levothyroxine Sodium 88 Mcg Tablet PO Not Given DAILY@0630 NOHEMY Lumigan (Bimatoprost 1 each 07/20/23 22:00 07/21/23 20:57 ) 0.01% Ophth Soln 7 BY MOUTH 08/19/23 21:59 1 each .5ml (Home Med) HS NOHEMY Administration Ondanse
[2023-07-22] MEDS: SODIUM CHLORIDE 0.9% IV 1,000 ML 999 ML IV CONT (15:17)
[2023-07-22] MEDS: KCL 20MEQ/0.9% SOD CHL 1,000 ML 125 ML IV CONT (15:17)
[2023-07-22] MEDS: PANTOPRAZOLE SODIUM IV 40 MG VIAL IV PUSH ×2 (15:17→21:45)
[2023-07-22 15:25] VITALS: BP 123/46; PULSE 70; RESP 16; TEMP 36.5; O2SAT 96
[2023-07-22 19:36] VITALS: BP 132/47; PULSE 73; RESP 16; TEMP 37.3; O2SAT 98
[2023-07-22 20:00] VITALS: PULSE 73; RESP 16; O2SAT 98
[2023-07-23] MEDS: KCL 20MEQ/0.9% SOD CHL 1,000 ML 125 ML IV CONT (03:38)
[2023-07-23] MEDS: ONDANSETRON INJ 4 MG/2 ML VIAL IV PUSH ×3 (03:38→13:54)
[2023-07-23 03:51] VITALS: BP 132/44; PULSE 77; RESP 16; TEMP 37.2; O2SAT 94
[2023-07-23 05:29] LABS: Anion Gap 12 mmol/L (8-16); Blood Urea Nitrogen 33 mg/dL (7-17); Calcium 7.6 mg/dL (8.4-10.2); Carbon Dioxide 20 mmol/L (22-30); Chloride 108 mmol/L (98-107); Estimated Glomerular Filt Rate > 60; Glucose 88 mg/dL (65-110); Potassium 2.7 mmol/L (3.4-5.0); Sodium 140 mmol/L (137-145)
[2023-07-23] MEDS: PANTOPRAZOLE SODIUM IV 40 MG VIAL IV PUSH (08:05)
[2023-07-23] MEDS: ENOXAPARIN 40 MG/0.4 ML SYRINGE SUB-Q (08:06)
[2023-07-23] MEDS: POTASSIUM CHLORIDE INJ 40 MEQ in SODIUM CHLORIDE 0.9% IV 500 ML 130 MEQ IVPB (10:40)
[2023-07-23] MEDS: KCL 40 MEQ/0.9% SOD CHL 1,000 ML 100 ML IV CONT ×2 (13:38→23:58)
[2023-07-23 14:00] VITALS: BP 146/57; PULSE 73; RESP 16; TEMP 36.6; O2SAT 100
[2023-07-23] MEDS: POTASSIUM CHLORIDE 20 MEQ ER TABLET 40 MEQ PO ×2 (14:03→16:12)
--- NOTE | 2023-07-23 14:37 | PM.PNGS ---
Progress Note: A&P Assessment and Plan (1) SBO (small bowel obstruction): Code(s): K56.609 - Unspecified intestinal obstruction, unspecified as to partial versus complete obstruction Status: Acute Assessment and Plan: Most likely has resolved. Will get small-bowel series with water-soluble contrast. If transit is normal, DC NG tube and start full liquids. (2) Incisional hernia of anterior abdominal wall without obstruction or gangrene: Code(s): K43.2 - Incisional hernia without obstruction or gangrene Status: Chronic Assessment and Plan: Asymptomatic and reducible (3) Hypokalemia due to excessive gastrointestinal loss of potassium: Code(s): E87.6 - Hypokalemia Status: Acute Assessment and Plan: Potassium down to 2.7 with large NG output. Will supplement. Recheck potassium at 4:00 a.m. this afternoon (4) Anemia: Qualifiers: Anemia type: other cause Other causes of anemia: other cause, not classified Qualified Code(s): D64.89 - Other specified anemias Code(s): D64.9 - Anemia, unspecified Status: Acute Assessment and Plan: Slowly drifting down. No blood in nasogastric tube today. Patient on Protonix twice a day intravenously. Most likely dilutional. Subjective Subjective Date/Time Seen: 07/23/23 14:37 Patient reports: feels better, pain is less (No abdominal pain) and bowel movement Review of Systems Review of Systems: All systems reviewed & are unremarkable except as noted in HPI and below (HPI) Exam Const: General: comfortable and no acute distress Orientation/consciousness: patient oriented x3 GI: Inspection: non-distended and visible herniation (No change) GI Palp: Yes Soft to palpation, No Tenderness to palpation present (GI), No Guarding due to palpation present (GI), Yes Hernia present (No change, reducible) and No Rebound tenderness present Auscultation: normal bowel sounds Neuro: General: patient oriented x3 and no focal motor deficits Extrem: General: no calf tenderness and no edema Psych: Affect: normal affect Insight: Good insight present (Psych) Judgement: Good judgement present (Psych) Objective Data Vital Signs Vital Signs: Vital Signs - 24 hr 07/22/23 15:25 07/22/23 19:36 07/22/23 20:00 Temperature 36.5 C 37.3 C Pulse Rate 70 73 73 Respiratory Rate 16 16 16 Blood Pressure 123/46 L 132/47 L Pulse Oximetry 96 98 98 Oxygen Delivery Room Air 07/23/23 03:51 07/23/23 08:00 Temperature 37.2 C Pulse Rate 77 Respiratory Rate 16 Blood Pressure 132/44 L Pulse Oximetry 94 Oxygen Delivery Room Air Intake/Output Intake/Output: Intake & Output 07/20/23 07/21/23 07/22/23 07/23/23 23:59 23:59 23:59 23:59 Intake Total 1000 2000 3720 50 Output Total 180 630 Balance 1000 1820 3090 50 Meds/Results Medications: Active Medications Generic Name Dose Route Start Last Admin Trade Name Freq PRN Reason Stop Dose Admin Clobetasol Propionate 1 applic 07/21/23 06:58 Clobetasol Propionate 0.05% Cream 15 Gm TOPICAL DAILY PRN spot on ankle Enoxaparin Sodium 40 mg 07/23/23 09:00 07/23/23 08:06 Enoxaparin 40 Mg/0.4 Ml Syringe SUB-Q 40 mg DAILY NOHEMY Administration Hydromorphone HCl 0.5 mg 07/20/23 21:12 Hydromorphone Hcl Inj (*Crx) 1 Mg/Ml Syr IV PUSH Q2H PRN Pain Rated 7-10 Ibuprofen 800 mg in 200 mls @ 400 mls/hr 07/20/23 21:15 Caldolor 800 Mg/200 Ml IVPB Q6H PRN Pain Rated 4-6 Potassium Chloride/Sodium Chloride 1,000 mls @ 100 mls/hr 07/23/23 10:45 07/23/23 13:38 Kcl 40 Meq/Ns IV CONT 100 mls/hr .Q10H NOHEMY Administration Levothyroxine Sodium 88 mcg 07/21/23 07:15 07/23/23 05:47 Levothyroxine Sodium 88 Mcg Tablet PO Not Given DAILY@0630 NOHEMY (Home Med)[place] ( 1 each 07/20/23 22:00 07/22/23 21:45 Bimatoprost) 0.01% BY MOUTH 08/19/23 21:59 1 each Ophth Soln 7.5ml ( HS NOHEMY Administration Home
[2023-07-23 16:47] LABS: Potassium 3.6 mmol/L (3.4-5.0)
[2023-07-23 20:00] VITALS: PULSE 76; RESP 16; O2SAT 97
[2023-07-23 21:22] VITALS: BP 147/63; PULSE 76; RESP 16; TEMP 36.6; O2SAT 97
[2023-07-23] MEDS: PANTOPRAZOLE 40 MG TABLET PO (21:26)
[2023-07-24] MEDS: LEVOTHYROXINE SODIUM 88 MCG TABLET PO (05:32)
[2023-07-24 05:58] LABS: Anion Gap 5 mmol/L (8-16); Blood Urea Nitrogen 20 mg/dL (7-17); Carbon Dioxide 24 mmol/L (22-30); Chloride 110 mmol/L (98-107); Estimated Glomerular Filt Rate > 60; Glucose 103 mg/dL (65-110); Potassium 3.5 mmol/L (3.4-5.0); Sodium 139 mmol/L (137-145)
[2023-07-24 06:00] LABS: Hemoglobin 10.9 g/dL (12.0-15.0); Mean Corpuscular HGB Conc 32.1 g/dl (32-36); Mean Corpuscular Hemoglobin 29.9 pg (26-34); Mean Corpuscular Volume 93.2 fl (80-100); Mean Platelet Volume 9.3 fl (7.4-10.4); Platelet Count Result 274 k/mm3 (150-375); Red Blood Count 3.65 M/mm3 (4.2-5.4); Red Cell Distribution Width 12.3 % (11.5-14.5); White Blood Count 9.4 K/mm3 (4.5-10.0)
--- NOTE | 2023-07-24 06:19 | PM.PNGS ---
Progress Note: A&P Assessment and Plan (1) SBO (small bowel obstruction): Code(s): K56.609 - Unspecified intestinal obstruction, unspecified as to partial versus complete obstruction Status: Acute Assessment and Plan: Small-bowel follow-through yesterday showed normal transit. Tolerated liquids well. Advance to soft diet today. Doing well. Possibly home tomorrow. (2) Hypokalemia due to excessive gastrointestinal loss of potassium: Code(s): E87.6 - Hypokalemia Status: Acute Assessment and Plan: Potassium improved to 3.5. Continue IV potassium but stop oral potassium. Recheck tomorrow (3) Anemia: Qualifiers: Anemia type: other cause Other causes of anemia: other cause, not classified Qualified Code(s): D64.89 - Other specified anemias Code(s): D64.9 - Anemia, unspecified Status: Acute Assessment and Plan: H&H continues to drift down but patient hemodynamically stable and asymptomatic. This is probably dilutional. Recheck again tomorrow. (4) Incisional hernia of anterior abdominal wall without obstruction or gangrene: Code(s): K43.2 - Incisional hernia without obstruction or gangrene Status: Chronic Assessment and Plan: Possibly outpatient repair. Patient will consider. Subjective Subjective Date/Time Seen: 07/24/23 06:19 Patient reports: feels better, bowel movement and afebrile Exam GI: Inspection: non-distended and visible herniation GI Palp: Yes Soft to palpation and No Tenderness to palpation present (GI) Auscultation: normal bowel sounds Objective Data Vital Signs Vital Signs: Vital Signs - 24 hr 07/23/23 08:00 07/23/23 14:00 07/23/23 21:22 Temperature 36.6 C 36.6 C Pulse Rate 73 76 Respiratory Rate 16 16 Blood Pressure 146/57 H 147/63 H Pulse Oximetry 100 97 Oxygen Delivery Room Air 07/23/23 20:00 Temperature Pulse Rate 76 Respiratory Rate 16 Blood Pressure Pulse Oximetry 97 Oxygen Delivery Room Air Intake/Output Intake/Output: Intake & Output 07/21/23 07/22/23 07/23/23 07/24/23 23:59 23:59 23:59 23:59 Intake Total 1999 3720 2320 Output Total 180 630 Balance 1820 3090 2320 Meds/Results Medications: Active Medications Generic Name Dose Route Start Last Admin Trade Name Freq PRN Reason Stop Dose Admin Clobetasol Propionate 1 applic 07/21/23 06:58 Clobetasol Propionate 0.05% Cream 15 Gm TOPICAL DAILY PRN spot on ankle Enoxaparin Sodium 40 mg 07/23/23 09:00 07/23/23 08:06 Enoxaparin 40 Mg/0.4 Ml Syringe SUB-Q 40 mg DAILY NOHEMY Administration Hydromorphone HCl 0.5 mg 07/20/23 21:12 Hydromorphone Hcl Inj (*Crx) 1 Mg/Ml Syr IV PUSH Q2H PRN Pain Rated 7-10 Ibuprofen 800 mg in 200 mls @ 400 mls/hr 07/20/23 21:15 Caldolor 800 Mg/200 Ml IVPB Q6H PRN Pain Rated 4-6 Potassium Chloride/Sodium Chloride 1,000 mls @ 60 mls/hr 07/23/23 10:45 07/23/23 23:58 Kcl 40 Meq/Ns IV CONT 100 mls/hr .[id number] NOHEMY Administration Levothyroxine Sodium 88 mcg 07/21/23 07:15 07/24/23 05:32 Levothyroxine Sodium 88 Mcg Tablet PO 88 mcg DAILY@0630 NOHEMY Administration (Home Med)Lumigan ( 1 each 07/20/23 22:00 07/23/23 21:26 Bimatoprost) 0.01% BY MOUTH 08/19/23 21:59 1 each Ophth Soln 7.5ml ( HS NOHEMY Administration Home Med) Ondansetron HCl 4 mg 07/20/23 09:33 07/23/23 13:54 Ondansetron Inj 4 Mg/2 Ml Vial IV PUSH 4 mg Q4H PRN Administration Nausea Pantoprazole Sodium 40 mg 07/23/23 21:00 07/23/23 21:26 Pantoprazole 40 Mg Tablet PO 40 mg Q12HR NOHEMY Administration Radiology Results: ITS Impressions Abdomen/Pelvis CT 07/20/23 08:53 Impression: Small bowel obstruction, with transition point, as detailed above. Abdomen X-Ray 07/23/23 06:32 Impression: 1: Improving small bowel distention, consistent with resolving obstruction. Small Bowel X-Ray 07/23/23 1
[2023-07-24 06:37] VITALS: BP 140/52; PULSE 79; RESP 18; TEMP 36.4; O2SAT 94
[2023-07-24] MEDS: ENOXAPARIN 40 MG/0.4 ML SYRINGE SUB-Q (08:11)
[2023-07-24] MEDS: PANTOPRAZOLE 40 MG TABLET PO ×2 (08:11→21:05)
[2023-07-24 13:00] VITALS: BP 115/48; PULSE 81; RESP 16; TEMP 36.3; O2SAT 97
[2023-07-24] MEDS: KCL 40 MEQ/0.9% SOD CHL 1,000 ML 60 ML IV CONT (17:45)
[2023-07-24 20:00] VITALS: PULSE 79; RESP 18; O2SAT 94
[2023-07-24 21:35] VITALS: BP 109/71; PULSE 79; RESP 18; TEMP 36.8; O2SAT 94
[2023-07-25 05:28] VITALS: BP 138/56; PULSE 73; RESP 18; TEMP 36.7; O2SAT 96
[2023-07-25] MEDS: LEVOTHYROXINE SODIUM 88 MCG TABLET PO (05:34)
[2023-07-25 05:36] LABS: Hematocrit 33.2 % (37.0-47.0); Hemoglobin 10.5 g/dL (12.0-15.0); Mean Corpuscular HGB Conc 31.6 g/dl (32-36); Mean Corpuscular Hemoglobin 29.9 pg (26-34); Mean Corpuscular Volume 94.6 fl (80-100); Mean Platelet Volume 9.8 fl (7.4-10.4); Platelet Count Result 238 k/mm3 (150-375); Red Blood Count 3.51 M/mm3 (4.2-5.4); Red Cell Distribution Width 12.6 % (11.5-14.5); White Blood Count 8.3 K/mm3 (4.5-10.0)
[2023-07-25 05:45] LABS: Anion Gap 3 mmol/L (8-16); Blood Urea Nitrogen 20 mg/dL (7-17); Calcium 7.8 mg/dL (8.4-10.2); Carbon Dioxide 25 mmol/L (22-30); Chloride 108 mmol/L (98-107); Estimated Glomerular Filt Rate > 60; Glucose 104 mg/dL (65-110); Potassium 4.1 mmol/L (3.4-5.0); Sodium 136 mmol/L (137-145)
[2023-07-25] MEDS: ENOXAPARIN 40 MG/0.4 ML SYRINGE SUB-Q (08:34)
[2023-07-25] MEDS: PANTOPRAZOLE 40 MG TABLET PO (08:34)
--- NOTE | 2023-07-25 08:59 | PM.DS ---
DS: Admitting Diagnosis Discharge Date 07/25/2023 Admitting Diagnosis Small-bowel obstruction Incisional hernia DS: Discharge Diagnosis Discharge Diagnosis (1) SBO (small bowel obstruction): Code(s): K56.609 - Unspecified intestinal obstruction, unspecified as to partial versus complete obstruction Status: Acute Assessment and Plan: Resolved and patient eating solid food without difficulty. No surgery required. This is the 1st episode she has ever had of this. (2) Incisional hernia of anterior abdominal wall without obstruction or gangrene: Code(s): K43.2 - Incisional hernia without obstruction or gangrene Status: Chronic Assessment and Plan: Has been present for years. Asymptomatic. Patient to see me in the office in a couple of months to consider hernia repair. (3) Anemia: Qualifiers: Anemia type: other cause Other causes of anemia: other cause, not classified Qualified Code(s): D64.89 - Other specified anemias Code(s): D64.9 - Anemia, unspecified Status: Acute Assessment and Plan: Hemoglobin and hematocrit drifted down during her hospital stay. There was no evidence of bleeding. This is very likely dilutional a fax from her IV fluids. This is asymptomatic and it was stable the last 2 days of her hospitalization. Will improve on its own. (4) Hypokalemia due to excessive gastrointestinal loss of potassium: Code(s): E87.6 - Hypokalemia Status: Acute Assessment and Plan: Potassium dropped as low as 2.7 on 07/23/2023. This was due to large amounts of gastric fluid being suctioned for treatment of her small-bowel obstruction. This was replenished and by the day of discharge her potassium was 4.1. DS: Summary Hospital Course Hospital Course: Patient is an 83-year-old woman who on the 17 of July had some chicken but then developed abdominal pain nausea and vomiting afterwards. She has thought she had food poisoning but this did not improve. She has had obstipation even before 07 17 and this persisted. She came to the emergency room on the 20 of July and evaluation there showed a distended abdomen. There was also some tenderness somewhat diffusely. CT scan showed a small-bowel obstruction. Patient was reluctant to have an NG tube placed and a very small diameter tube was placed in the emergency room. She had not made much progress after 24 hours and on 07/21/2023 she agreed to have a larger diameter tube placed. Imaging showed this to to be in good position. She had a lot more output of the thickened gastric contents. Her plain films and exam improved. Her pain went away. She had a small-bowel follow-through with water-soluble contrast on 07/23/2023. This was essentially normal with a normal transit time. Her nasogastric tube was removed and she was started on full liquids. She was slowly advanced and by the day of discharge 07/25/2023 was having bowel movements and tolerating solid food. She feels much better and is discharged now on 07/25/2023. She was also noted to have an incidental small incisional hernia from a previous laparoscopic trocar site just above the umbilicus. We discussed having this repaired electively. She will probably see me in the office after the 1st of the year to talk about hernia repair and possibly proceed with that procedure. Status at Discharge Overall status at discharge: patient is progressing back to baseline Time Spent with Patient Time attestation: Total time spent providing and/or coordinating discharge services: Time spent: Less than 30 minutes DS: Data Data Completed and Pending Labs on day of discharge: Labs from last 24 hours 07/25/23 05:04 WBC 8.3 RBC 3.51 L Hgb 10.5 L Hct 33.2 L MCV 94.6 MCH 29.9 MCHC 31.6 L RDW 12.6 Plt Count 238 MPV 9.8 Sodium 136 L Potassium 4.1 Chloride 108 H Carbon Dioxide 25 Anion Gap 3 L BUN 20 H Creatinine 0.50 L Oksana
== END 2023-07-25 13:05 | disposition home or self-care (01) | DRG 390 ==
LOC: ANHED 08:04 → ANH2MED 10:24
PROVIDERS: Admitting Provider Surgery; Emergency Provider Emergency Medicine; PCP Family Medicine; Visit Provider Surgery
DX: K56.609 Unspecified intestinal obstruction, unspecified as to partial versus complete obstruction (principal); M19.90 Unspecified osteoarthritis, unspecified site; E03.9 Hypothyroidism, unspecified; M81.0 Age-related osteoporosis without current pathological fracture; E78.2 Mixed hyperlipidemia; M85.89 Other specified disorders of bone density and structure, multiple sites; I10 Essential (primary) hypertension; K43.2 Incisional hernia without obstruction or gangrene; E87.6 Hypokalemia; D64.89 Other specified anemias; Z96.641 Presence of right artificial hip joint; Z91.81 History of falling; Z90.710 Acquired absence of both cervix and uterus
CPT/HCPCS: 36415; 74018; 74177; 74250; 80048; 80053; 81001; 83690; 84132; 85025; 85027; 96374; 99285; A9270; C9113; G0378; J1650; J2405; J3480; J7030; J7040; Q9967

== ENCOUNTER 2024-07-04 16:49 | Emergency (ER) | payer MEDICARE, SELFPAY ==
--- NOTE | ~2024-07-04 | CT_ITS ---
CT lumbar spine wo con Ordering provider: Jett Edmonds PA-C History: 84 years Female with . LBP, R radiculopathy new onset . Comparison: None. Technique: CT lumbar spine without contrast. Automated exposure control and iterative reconstruction technique were employed. The dose-length product was 399.72 mGy-cm. FINDINGS: VERTEBRAE: Normal height and alignment. No subluxation or visible acute fracture. Degenerative change s of the spine. DISC SPACES: Severe Narrowing of all the disc spaces. Multilevel facet joint disease. T12-L1: No stenosis. The left foramen due to osteophytes. L1-L2: No stenosis. L2-L3: No stenosis. L3-L4: No stenosis. L4-L5: No stenosis. Bilateral narrowing of the foramina due to osteophytes. L5-S1: No stenosis. PARASPINOUS SOFT TISSUES: Mild atheromatous disease of the abdominal aorta. Dependent atelectatic changes. Right hip arthroplasty. Bilateral sacroiliitis. IMPRESSION: Multilevel degenerative disc disease with variable degrees of intervertebral foraminal narrowing. Multilevel facet joint disease. No acute osseous abnormality. Reviewed, dictated and finalized at location A. RT MANAGER IMPRESSION: Multilevel degenerative disc disease with variable degrees of intervertebral fo raminal narrowing. Multilevel facet joint disease. No acute osseous abnormality.
[2024-07-04 16:52] VITALS: BP 133/51; PULSE 93; RESP 16; TEMP 36.6; O2SAT 98
--- NOTE | 2024-07-04 17:53 | ED_ITS ---
HPI - Extremity Problem General Chief complaint: Extremity Problem,Nontraumatic Stated complaint: R HIP/LEG PAIN Time Seen by Provider: 07/04/24 16:58 Source: patient Mode of arrival: ambulatory Limitations: no limitations History of Present Illness HPI Narrative: This is an 84-year-old female who presents to the ED for chief complaint of right hip pain that radiates down the right leg. Reports pain has been going on for the past couple of weeks and worse today. Reports that her pain radiated down all the way to the right foot today which was new. States that certain positions make the pain worse. Denies bowel or bladder dysfunction. Denies numbness, weakness of the groin or extremities. Denies fevers, chills or recent illness. Normally ambulates with a cane with surgical history of right hip replacement and left knee replacement. Related Data Home Medications Medication Instructions Recorded Confirmed bimatoprost 0.01 % eye drops 1 drp EACH EYE QPM 06/28/21 04/30/24 (Lumigan) cyanocobalamin (vitamin B-12) 1,000 mcg PO BID 06/28/21 04/30/24 1,000 mcg tablet Allergies Allergy/AdvReac Type Severity Reaction Status Date / Time Sulfa (Sulfonamide Allergy Unknown Hives Verified 04/30/24 10:38 Antibiotics) fentanyl AdvReac Unknown Nausea Verified 04/30/24 10:38 Review of Systems Review of Systems: All systems as dictated in HPI [facility] Past Medical History Medical History Abnormality of gait and mobility Acute pain Allergic reaction caused by a drug Ankle weakness Arthritis Benign essential HTN Chronic right shoulder pain Closed fracture of neck Displaced midcervical fracture of right femur, initial encounter for closed fracture (05/02/16) Encounter for general adult medical examination with abnormal findings Essential (primary) hypertension Herpes zoster without complication Hip subtrochanteric fracture History of falling (05/02/16) Hypothyroidism (acquired) Hypothyroidism, unspecified Knee swelling Mixed hyperlipidemia Mixed hyperlipidemia Nummular eczema Osteopenia determined by x-ray Osteopenia of multiple sites Osteoporosis Other chronic pain Otitis Pain PND (post-nasal drip) Pollen allergies Primary osteoarthritis of right shoulder Retained myringotomy tube in left ear Rotator cuff arthropathy of right shoulder SAH (subarachnoid hemorrhage) Strep pharyngitis Tendinopathy of both shoulders Unspecified disorder of synovium and tendon, left shoulder Vitamin D deficiency, unspecified Weakness of right hip Surgical History Surgical History H/O rotator cuff surgery History of hip surgery (~04/25/16) Bipolar Cristian Arthroplasty Rt Hip History of open reduction and internal fixation (ORIF) procedure Hx of hysterectomy Presence of right artificial hip joint Family History Family History Mother Family history of malignant neoplasm of stomach, Onset Age: 75 Patient's mother is Father Patient's father is Social History Social History Social History: Smoking packs per day: 0.5 Smoking cigarettes per day: 10.0 Years smoked: 8 Smoking pack-years: 4.00 Smoking status: Never smoker Tobacco type: cigarettes Second hand tobacco smoke exposure: No Smoking end date: 08/07/72 Alcohol intake: current Alcohol use details: occasionally Substance use: never Substance use type: does not use Do You Feel Safe in your Home?: Yes Lack of Transportation: No Lack of Food: Never True Current Housing: I Have Housing Concerned About Future Housing: No Difficulty Paying Gas/Electric Bills: No Difficulty Paying for Meds: No Currently Unemployed: No Education: High School Diploma/GED Difficulty w/ Childcare or Family Care: No Living arrangements: alone Occupation/Education: retired Gender identity (if verbalized by the patient): Female Sexual Orientation (if Verbalized by the Patient): Straight or Heterosexual Spiritual care concerns: No Exam Narrative: GENERAL: Well-appearing, well-nourished, and in no acute distress. HEAD: Normocephalic, atraumatic. EYES: PERRLA and EOMI. ENT: Nares clear, no rhinorrhea or epistaxis. Mucous membranes moist. Oropharynx without tonsillar hypertrophy exudate or other lesions. NECK: Supple. No adenopathy or masses. CHEST: No respiratory distress. Clear to auscultation. No wheezes rales or rhonchi HEART: Regular rate and rhythm. No murmur heard. Normal peripheral pulses. ABDOMEN: Soft, nontender, nondistended, normal active bowel sounds. MSK: Mild tenderness to the right SI/right lateral glute. Negative straight leg raise bilaterally. 5/5 strength and sensation in the upper and lower extremities. SKIN: Warm, dry, no rash. NEURO: Alert and oriented x4. No focal deficits. PSYCH: Normal mood and affect. Course Vital Signs Vital signs: Vital Signs Temperature 36.6 C 07/04/24 16:52 Pulse Rate 93 07/04/24 16:52 Respiratory Rate 16 07/04/24 16:52 Blood Pressure 133/51 L 07/04/24 16:52 Pulse Oximetry 98 07/04/24 16:52 Oxygen Delivery Room Air 07/04/24 16:52 Temperature 36.6 C 07/04/24 16:52 Pulse Rate 77 07/04/24 20:38 Respiratory Rate 16 07/04/24 20:38 Blood Pressure 127/60 07/04/24 20:38 Pulse Oximetry 99 07/04/24 20:38 Oxygen Delivery Room Air 07/04/24 16:52 MDM - Extremity (Nontraumatic) MDM Narrative Medical decision making narrative: This is a 84-year-old female who presents to the ED for chief complaint right hip pain that radiates down the right leg. Vitals are normal. Exam is remarkable for the above. No neurologic deficits. No red flag back signs. CT lumbar: IMPRESSION: Multilevel degenerative disc disease with variable degrees of intervertebral foraminal narrowing. Multilevel facet joint disease. No acute osseous abnormality Presentation consistent with degenerative disc disease and sciatica. She was given 2 mg of morphine and had improvement here. Short course of tramadol and steroid pack prescribed to get to next PCP appointment. Patient will be discharged in stable condition. Supportive measures discussed and return precautions given. Patient is understanding and agreeable with plan for discharge with PCP follow-up. Discharge Plan Discharge Clinical Impression: Degenerative disc disease Patient Disposition: Home, Self-Care Condition: Stable Instructions: Antibiotic Form Additional Instructions: Your exam today does show degenerative disc disease most likely causing sciatica. Please take your normal [id number] pain medications and use oxycodone for breakthrough pain. Follow-up closely with PCP on this issue. If you have any new or worsening symptoms please return to the ER for further evaluation. Prescriptions: New methylprednisolone [Medrol ([place])] 4 mg tablets,dose pack See Rx Instructions PO .COMPLEX Qty: 21 0RF Rx Instructions: orally per package directions tramadol 50 mg tablet 50 mg PO Q6H PRN (Reason: pain) 5 Days Qty: 20 0RF No Action cyanocobalamin (vitamin B-12) 1,000 mcg Tablet 1,000 mcg PO BID Lumigan 0.01 % Drops 1 drp EACH EYE QPM lisinopril-hydrochlorothiazide 20-12.5 mg tablet See Rx Instructions .ROUTE .COMPLEX Qty: 90 1RF Dose Instruction: TAKE 1 TABLET BY MOUTH DAILY Rx Instructions: TAKE 1 TABLET BY MOUTH DAILY levothyroxine 88 mcg tablet See Rx Instructions .ROUTE .COMPLEX Qty: 90 1RF Dose Instruction: TAKE 1 TABLET(88 MCG) BY MOUTH DAILY. EXCEPT TAKE 1/2 TABLET BY MOUTH ON SUNDAYS Rx Instructions: TAKE 1 TABLET(88 MCG) BY MOUTH DAILY. EXCEPT TAKE 1/2 TABLET BY MOUTH ON SUNDAYS Follow-up/Referrals: Aden Ford MD [Primary Care Provider] - Time of Disposition: 21:16
[2024-07-04] MEDS: MORPHINE SULFATE (*CRX) 2 MG/ML INJ IV PUSH (18:49)
[2024-07-04 19:02] VITALS: BP 130/58; PULSE 87; RESP 11; O2SAT 98
[2024-07-04 20:38] VITALS: BP 127/60; PULSE 77; RESP 16; O2SAT 99
[2024-07-04 21:28] VITALS: BP 149/64; PULSE 65; RESP 15; O2SAT 100
== END 2024-07-04 22:00 | disposition home or self-care (01) ==
PROVIDERS: Emergency Provider Physician Assistant; PCP Family Medicine
DX: M51.369 Other intervertebral disc degeneration, lumbar region without mention of lumbar back pain or lower extremity pain (principal); I10 Essential (primary) hypertension; E03.9 Hypothyroidism, unspecified; E78.2 Mixed hyperlipidemia; E55.9 Vitamin D deficiency, unspecified; M85.80 Other specified disorders of bone density and structure, unspecified site; M81.0 Age-related osteoporosis without current pathological fracture; M19.011 Primary osteoarthritis, right shoulder; Z96.641 Presence of right artificial hip joint; Z87.891 Personal history of nicotine dependence; Z90.710 Acquired absence of both cervix and uterus; Z79.899 Other long term (current) drug therapy
CPT/HCPCS: 72131; 96374; 99284; J2270

== ENCOUNTER 2024-07-06 08:03 | Emergency (ER) | payer MEDICARE, SELFPAY ==
--- NOTE | ~2024-07-06 | XR_ITS ---
XR chest 1V portable DATE: 07/06/2024 09:31 INDICATION: Nausea and vomiting TECHNIQUE: Portable semiupright AP chest on 07/06/2024 at 0931 hours COMPARISON: 04/24/2016 portable AP chest FINDINGS: Heart size is within normal limits. There is thoracic aortic calcification and unfolding. N o hilar or mediastinal enlargement. No pulmonary infiltrate or consolidation, pleural effusion or pulmonary vascular congestion or pneumo thorax is detected. Prominent diffuse osteopenia. Interval severe deformity at the glenohumeral joints since 04/24/2016, in addition to right acromiocla vicular joint. Left rotator cuff atrophy. Thoracic levoscoliosis and degenerative change IMPRESSION: No active cardiopulmonary disease Thoracic aortic atherosclerosis Interval severe deformity at the glenohumeral joints, especially on the right in addition to right ac romioclavicular joint Left rotator cuff atrophy Osteopenia Reviewed, dictated and finalized at location A. [facility] SULFITE IMPRESSION: No active cardiopulmonary disease Thoracic aortic atherosclerosis Interval severe deformity at the glenohumeral joints, especially on the right i n addition to right acromioclavicular joint Left rotator cuff atrophy Osteopenia
[2024-07-06 08:14] VITALS: BP 161/70; PULSE 76; RESP 18; TEMP 36.2; O2SAT 96
--- NOTE | 2024-07-06 09:24 | ECG_ITS ---
Test Date: 2024-07-06 09:34:08 Measurements Intervals [place] Rate: 74 P: 63 MA: 214 QRS: 0 QRSD: 109 T: 77 QT: 410 QTc: 455 Interpretive Statements SINUS RHYTHM WITH FIRST DEGREE AV BLOCK CANNOT R/O SEPTAL INFARCT, AGE INDETERMINATE BASELINE ARTIFACT- I, II, III, AVR, AVL, AVF, V1, V4-V6 ABNORMAL ECG No previous ECG available for comparison Electronically Signed On 07-06-2024 13:59:51 [employer] by Yo Adam D.O.
[2024-07-06] MEDS: SODIUM CHLORIDE 0.9% IV 1,000 ML 999 ML IV CONT ×2 (09:32→10:44)
[2024-07-06] MEDS: ONDANSETRON INJ 4 MG/2 ML VIAL IV PUSH (09:33)
[2024-07-06 09:35] VITALS: BP 153/69; PULSE 68; RESP 18; O2SAT 99
[2024-07-06 09:48] LABS: Basophils Absolute Auto 0.1 K/mm3 (0.0-0.1); Basophils Percent Auto 0.9 % (0.2-1.2); Eosinophils Percent Auto 0.1 % (0-4.4); Hematocrit 37.9 % (37.0-47.0); Hemoglobin 12.7 g/dL (12.0-15.0); Immature Granulocyte Absolute 0.02 K/mm3 (0.00-0.031); Immature Granulocyte Percent A 0.3 % (0-0.5); Lymphocytes Absolute Auto 1.15 K/mm3 (0.9-3.2); Lymphocytes Percent Auto 14.5 % (18.3-44.2); Mean Corpuscular HGB Conc 33.5 g/dl (32-36); Mean Corpuscular Hemoglobin 30.8 pg (26-34); Monocytes Absolute Auto 0.3 K/mm3 (0.1-0.6); Neutrophils Absolute Auto 6.3 K/mm3 (1.3-6.7); Neutrophils Percent Auto 80.2 % (45.5-73.1); Platelet Count Result 266 k/mm3 (150-375); Red Blood Count 4.12 M/mm3 (4.2-5.4); Red Cell Distribution Width 12.1 % (11.5-14.5); White Blood Count 7.9 K/mm3 (4.5-10.0)
[2024-07-06 10:02] LABS: Alanine Aminotransferase 17 U/L (6-35); Albumin Level 4.5 g/dL (3.5-5.1); Alkaline Phosphatase 72 U/L (38-126); Anion Gap 5 mmol/L (4-12); Aspartate Amino Transferase 30 U/L (14-36); Bilirubin,Total 0.7 mg/dL (0.2-1.3); Blood Urea Nitrogen 26 mg/dL (7-17); Calcium 8.9 mg/dL (8.4-10.2); Carbon Dioxide 28 mmol/L (22-30); Chloride 96 mmol/L (98-107); Estimated Glomerular Filt Rate > 60; Glucose 111 mg/dL (65-110); Lipase 43 U/L (23-300); Potassium 4.1 mmol/L (3.4-5.0); Sodium 129 mmol/L (137-145)
[2024-07-06 10:27] LABS: Influenza A QL RT-PCR Negative (Negative); Influenza B QL RT-PCR Negative (Negative); RSV RNA, RT-PCR Negative (Negative); SARS-CoV-2 RNA PCR Negative (Negative)
[2024-07-06] MEDS: MORPHINE SULFATE (*CRX) 15 MG TABCR PO (10:51)
--- NOTE | 2024-07-06 11:19 | ED_ITS ---
HPI - General Adult General Chief complaint: Nausea/Vomiting/Diarrhea Stated complaint: n/v after pain meds Time Seen by Provider: 07/06/24 08:16 History of Present Illness HPI narrative: This is an 84-year-old female presenting ED for nausea. She was seen for sciatica several days ago. She was prescribed tramadol. When she has been taking tramadol she has developed nausea but no vomiting. Patient has a very delicate stomach and has had issues with opiates in the past. She did tolerate morphine very well in our emergency department without nausea. Patient still has some pain with her sciatica but is under control. No other new symptoms. Related Data Home Medications Medication Instructions Recorded Confirmed bimatoprost 0.01 % eye drops 1 drp EACH EYE QPM 06/28/21 04/30/24 ([place]) cyanocobalamin (vitamin B-12) 1,000 mcg PO BID 06/28/21 04/30/24 1,000 mcg tablet Allergies Allergy/AdvReac Type Severity Reaction Status Date / Time Sulfa (Sulfonamide Allergy Unknown Hives Verified 07/06/24 08:18 Antibiotics) fentanyl AdvReac Unknown Nausea Verified 07/06/24 08:18 PMFSH Past Medical History Medical History Abnormality of gait and mobility Acute pain Allergic reaction caused by a drug Ankle weakness Arthritis Benign essential HTN Chronic right shoulder pain Closed fracture of neck Displaced midcervical fracture of right femur, initial encounter for closed fracture (05/02/16) Encounter for general adult medical examination with abnormal findings Essential (primary) hypertension Herpes zoster without complication Hip subtrochanteric fracture History of falling (05/02/16) Hypothyroidism (acquired) Hypothyroidism, unspecified Knee swelling Mixed hyperlipidemia Mixed hyperlipidemia Nummular eczema Osteopenia determined by x-ray Osteopenia of multiple sites Osteoporosis Other chronic pain Otitis Pain PND (post-nasal drip) Pollen allergies Primary osteoarthritis of right shoulder Retained myringotomy tube in left ear Rotator cuff arthropathy of right shoulder SAH (subarachnoid hemorrhage) Strep pharyngitis Tendinopathy of both shoulders Unspecified disorder of synovium and tendon, left shoulder Vitamin D deficiency, unspecified Weakness of right hip Surgical History Surgical History H/O rotator cuff surgery History of hip surgery (~04/25/16) Bipolar Cristian Arthroplasty Rt Hip History of open reduction and internal fixation (ORIF) procedure Hx of hysterectomy Presence of right artificial hip joint Family History Family History Mother Family history of malignant neoplasm of stomach, Onset Age: 75 Patient's mother is Father Patient's father is Social History Social History Social History: Smoking packs per day: 0.5 Smoking cigarettes per day: 10.0 Years smoked: 8 Smoking pack-years: 4.00 Smoking status: Never smoker Tobacco type: cigarettes Second hand tobacco smoke exposure: No Smoking end date: 08/07/72 Alcohol intake: current Alcohol use details: occasionally Substance use: never Substance use type: does not use Do You Feel Safe in your Home?: Yes Lack of Transportation: No Lack of Food: Never True Current Housing: I Have Housing Concerned About Future Housing: No Difficulty Paying Gas/Electric Bills: No Difficulty Paying for Meds: No Currently Unemployed: No Education: High School Diploma/GED Difficulty w/ Childcare or Family Care: No Living arrangements: alone Occupation/Education: retired Gender identity (if verbalized by the patient): Female Sexual Orientation (if Verbalized by the Patient): Straight or Heterosexual Spiritual care concerns: No Exam Narrative: APPEARANCE: No apparent distress. Head: atraumatic. EYES: EOMI, NOSE: Atraumatic NECK: Trachea midline RESPIRATORY: No increased rate of breathing, clear to auscultation CARDIOVASCULAR: RRR, no peripheral edema ABDOMINAL: Non-distended , soft nontender no guarding rebound MUSCULOSKELETAl: focal exam of the lower extremities show intact pulses, normal strength and sensation. Straight leg positive. NEURO: Alert. Moving 4/4 extremities SKIN:: Warm, dry. Normal color PSYCHIATRIC: Normal affect Course Vital Signs Vital signs: Vital Signs Temperature 97.1 F L 07/06/24 08:14 Pulse Rate 76 07/06/24 08:14 Respiratory Rate 18 07/06/24 08:14 Blood Pressure 161/70 H 07/06/24 08:14 Pulse Oximetry 96 07/06/24 08:14 Oxygen Delivery Room Air 07/06/24 08:14 Temperature 97.1 F L 07/06/24 08:14 Pulse Rate 68 07/06/24 09:35 Respiratory Rate 18 07/06/24 09:35 Blood Pressure 153/69 H 07/06/24 09:35 Pulse Oximetry 99 07/06/24 09:35 Oxygen Delivery Room Air 07/06/24 08:14 Medical Decision Making MDM Narrative Medical decision making narrative: -Course: A 84-year-old female presenting with nausea after taking tramadol. She has a history of for reactions to different medications. She has taken morphine in the past with no difficulty. She was given morphine here which she tolerated well. She will be given a prescription for morphine until she can follow-up with her primary care physician on Monday. Also given prescription for Zofran. Vital Signs Vital Signs: Vital Signs Temperature 97.1 F L 07/06/24 08:14 Pulse Rate 76 07/06/24 08:14 Respiratory Rate 18 07/06/24 08:14 Blood Pressure 161/70 H 07/06/24 08:14 Pulse Oximetry 96 07/06/24 08:14 Oxygen Delivery Room Air 07/06/24 08:14 Temperature 97.1 F L 07/06/24 08:14 Pulse Rate 68 07/06/24 09:35 Respiratory Rate 18 07/06/24 09:35 Blood Pressure 153/69 H 07/06/24 09:35 Pulse Oximetry 99 07/06/24 09:35 Oxygen Delivery Room Air 07/06/24 08:14 Lab Data 07/06/24 09:37 07/06/24 09:37 Labs: Lab Results 07/06/24 Range/Units 09:37 WBC 7.9 (4.5-10.0) K/mm3 RBC 4.12 L (4.2-5.4) M/mm3 Hgb 12.7 (12.0-15.0) g/dL Hct 37.9 (37.0-47.0) % MCV 92.0 (80-100) fl MCH 30.8 (26-34) pg MCHC 33.5 (32-36) g/dl RDW 12.1 (11.5-14.5) % Plt Count 266 (150-375) k/mm3 MPV 9.0 (7.4-10.4) fl Immature Gran % (Auto) 0.3 (0-0.5) % Neut % (Auto) 80.2 H (45.5-73.1) % Lymph % (Auto) 14.5 L (18.3-44.2) % [place] % (Auto) 4.0 (2.6-8.5) % Eos % (Auto) 0.1 (0-4.4) % Baso % (Auto) 0.9 (0.2-1.2) % Lymph # (Auto) 1.15 (0.9-3.2) K/mm3 [place] # (Auto) 0.3 (0.1-0.6) K/mm3 Eos # (Auto) 0.0 (0-0.3) K/mm3 Baso # (Auto) 0.1 (0.0-0.1) K/mm3 Abs Immat Gran (auto) 0.02 (0.00-0.031) K/mm3 Absolute Neuts (auto) 6.3 (1.3-6.7) K/mm3 Absolute Nucleated RBC 0.000 (0.0-0.012) K/mm3 Nucleated RBC % 0.0 (0.0-0.2) % Sodium 129 L (137-145) mmol/L Potassium 4.1 (3.4-5.0) mmol/L Chloride 96 L (98-107) mmol/L Carbon Dioxide 28 (22-30) mmol/L Anion Gap 5 (4-12) mmol/L BUN 26 H (7-17) mg/dL Creatinine 0.60 L (0.7-1.0) mg/dL Estim Creat Clear Calc Not Reportable Estimated GFR > 60 (59 - ) Glucose 111 H (65-110) mg/dL Calcium 8.9 (8.4-10.2) mg/dL Total Bilirubin 0.7 (0.2-1.3) mg/dL AST 30 (14-36) U/L ALT 17 (6-35) U/L Alkaline Phosphatase 72 (38-126) U/L Total Protein 7.0 (6.3-8.2) g/dL Albumin 4.5 (3.5-5.1) g/dL Lipase 43 (23-300) U/L Influenza A (RT-PCR) Negative (Negative) Influenza B (RT-PCR) Negative (Negative) RSV (RT-PCR) Negative (Negative) SARS-CoV-2 RNA (RT-PCR) Negative (Negative) Discharge Plan Discharge Clinical Impression: Sciatica, Nausea Patient Disposition: Home, Self-Care Condition: Stable Instructions: Antibiotic Form, Acute Nausea and Vomiting (DC) Additional Instructions: Please use morphine for pain control until you see your primary care physician. Please do not take tramadol as that seems to make you sick. Follow-up with primary care physician return to ED if develops any new or worsening symptoms. Prescriptions: New morphine 15 mg tablet extended release 15 mg PO Q12H Qty: 10 0RF ondansetron 4 mg tablet,disintegrating 4 mg PO Q8H PRN (Reason: nausea and vomiting) Qty: 30 0RF No Action cyanocobalamin (vitamin B-12) 1,000 mcg Tablet 1,000 mcg PO BID Lumigan 0.01 % Drops 1 drp EACH EYE QPM methylprednisolone [Medrol ([place])] 4 mg tablets,dose pack See Rx Instructions PO .COMPLEX Qty: 21 0RF Rx Instructions: orally per package directions tramadol 50 mg tablet 50 mg PO Q6H PRN (Reason: pain) 5 Days Qty: 20 0RF lisinopril-hydrochlorothiazide 20-12.5 mg tablet See Rx Instructions .ROUTE .COMPLEX Qty: 90 1RF Dose Instruction: TAKE 1 TABLET BY MOUTH DAILY Rx Instructions: TAKE 1 TABLET BY MOUTH DAILY levothyroxine 88 mcg tablet See Rx Instructions .ROUTE .COMPLEX Qty: 90 1RF Dose Instruction: TAKE 1 TABLET(88 MCG) BY MOUTH DAILY. EXCEPT TAKE 1/2 TABLET BY MOUTH ON SUNDAYS Rx Instructions: TAKE 1 TABLET(88 MCG) BY MOUTH DAILY. EXCEPT TAKE 1/2 TABLET BY MOUTH ON SUNDAYS Follow-up/Referrals: Ketty Garcia MD [Primary Care Provider] -
[2024-07-06 11:42] VITALS: BP 143/74; PULSE 78; RESP 18; O2SAT 100
== END 2024-07-06 11:44 | disposition home or self-care (01) ==
PROVIDERS: Emergency Provider Emergency Medicine; PCP Family Medicine
DX: R11.0 Nausea (principal); M54.30 Sciatica, unspecified side; T40.425A Adverse effect of tramadol, initial encounter; Z20.822 Contact with and (suspected) exposure to COVID-19; I10 Essential (primary) hypertension; E03.9 Hypothyroidism, unspecified; E78.2 Mixed hyperlipidemia; E55.9 Vitamin D deficiency, unspecified; M85.80 Other specified disorders of bone density and structure, unspecified site; M81.0 Age-related osteoporosis without current pathological fracture; M19.011 Primary osteoarthritis, right shoulder; Z96.641 Presence of right artificial hip joint; Z87.891 Personal history of nicotine dependence; Z90.710 Acquired absence of both cervix and uterus; Z79.899 Other long term (current) drug therapy
CPT/HCPCS: 36415; 71045; 80053; 83690; 85025; 87637; 93005; 96361; 96374; 99284; A9270; J2405; J7030